=== PATIENT | female | born 1930 | race Caucasian/White ===

== ENCOUNTER 2018-02-10 14:52 | Inpatient (IN) ==
[2018-02-10] MEDS ORDERED: Ipratropium/Albuterol Neb 3 ML IH ONE (15:14)
[2018-02-10 15:30] LABS: Basophils # 0.1 K/mcL (0.0-0.2); Basophils % 0.8 %; Eosinophils # 0.7 K/mcL (0.0-0.6); Eosinophils % 9.3 %; Hematocrit 45.9 % (35.3-44.9); Hemoglobin 16.1 g/dL (11.5-15.4); Immature Granulocytes % 0.3 % (0-4); Lymphocytes # 2.4 K/mcL (0.6-4.6); Lymphocytes % 32.7 %; Mean Corpuscular HGB Conc 35.1 g/dL (31.6-35.5); Mean Corpuscular Hemoglobin 31.6 pg (28.0-33.3); Mean Platelet Volume 10.8 fL (9.4-12.4); Monocytes # 0.7 K/mcL (0.0-1.3); Neutrophils # 3.4 K/mcL (1.6-8.9); Platelet Count 158 K/mcL (140-400); Red Cell Distribution Width 12.8 % (11.5-14.5); Segmented Neutrophils % 46.9 %
--- NOTE | 2018-02-10 15:42 | Emergency Department Note ---
Disposition Clinical Impression: Acute exacerbation of chronic obstructive airways disease Disposition: Admitted As Inpatient Condition: Fair Referrals: Marah Charlton MD [Primary Care Provider] - Forms: ED Satisfaction Letter Time of Disposition: 17:30 [facility] - General Chief Complaint: ED Shortness of Breath/Dyspnea Stated Complaint: SEMAJ Time Seen by Provider: 02/10/18 14:59 Source: patient Limitations: no limitations Nursing Notes Reviewed: Yes Vital Signs Reviewed: Yes - History of Present Illness 88-year-old female presents from home with daughter bedside for evaluation of progressive dyspnea. Onset approximately 3 days ago. Described as dyspnea with exertion. Patient does have COPD secondary to secondhand smoking and uses 2 L oxygen at night as well as when necessary during the day. She has had a wet but nonproductive cough. This is improved with her inhaler use. ROS: Positive: As above Negative: Fever, chills, nausea, vomiting, chest pains, lightheadedness, unusual back pains - Related Data Home Medications Medication Instructions Recorded Confirmed Aspirin [Lo-Dose Aspirin EC] 81 mg PO DAILY 02/10/18 02/10/18 Citalopram Hydrobromide [Celexa] 20 mg PO DAILY 02/10/18 02/10/18 Clopidogrel [Plavix] 75 mg PO DAILY 02/10/18 02/10/18 Enalapril Maleate [Vasotec] 20 mg PO BID 02/10/18 02/10/18 Isosorbide MONOnitrate (24 HR) 60 mg PO DAILY 02/10/18 02/10/18 [Imdur] Lansoprazole [Prevacid] 30 mg PO BID 02/10/18 02/10/18 Metoprolol [Lopressor] 25 mg PO BID 02/10/18 02/10/18 Ranitidine HCl [Acid Emergency Communications Operator] 150 mg PO BID 02/10/18 02/10/18 hydroCHLOROthiazide 25 mg PO DAILY 02/10/18 02/10/18 [Hydrochlorothiazide] Allergies Allergy/AdvReac Type Severity Reaction Status Date / Time No Known Allergies Allergy Verified 09/06/17 14:53 All systems ED: reviewed and negative except as stated. Review of Systems: As Per HPI Past Medical History - Past Medical History Medical history: Reports: arthritis, asthma, CHF, COPD, hypertension, kidney stones, myocardial infarction, thyroid disease Surgical history: Reports: appendectomy, colostomy, herniorrhaphy, hysterectomy Psychiatric history: Reports: anxiety - Social History Smoking Status: Never smoker Smokeless Tobacco Status: No Alcohol use: Reports: rarely Drug use: Reports: none Physical Exam Vital Signs Reviewed General: Patient is alert, oriented, and in no acute distress. Head: atraumatic, normocephalic Eye: normal appearance, no scleral icterus, no conjunctival injection ENT: mucous membranes moist, normal external ear exam Neck: normal inspection, trachea midline, full ROM Chest: normal inspection, symmetric chest rise Respiratory: Good respiratory effort. Prolonged expiratory phase. Bilateral breath sounds are diminished with scattered wheeze and coarse bibasilar crackles. Cardiovascular: Regular rate and rhythm. No clicks, rubs, gallops, or murmors. Normal heart sounds. Abdomen: Bowel sounds present normoactive. Abdomen is soft, nondistended, and nontender. No guarding or rebound. Musculoskeletal: Spontaneously moving all extremities. Skin: warm, dry, intact. Neuro: Alert and oriented x4. Sensation light touch intact. Psych: Patient's affect is appropriate for situation. - General Limitations: no limitations General appearance: alert Course Course Narrative: Clinical concern is for pneumonia versus CHF. Patient appears comfortable with no increased work of breathing. Chest x-ray did not show pulmonary edema ammonia. BNP is below 100. We will manage patient has acute exacerbation of COPD; will begin Levaquin and solumedrol. I discussed the above the patient. She is agreeable to admission for continued evaluation and management. Next I discussed the above the [facility], Dr. Chandra, who agrees to accept patient for acute exacerbation of COPD for continued evaluation and management. EKG dated February 2018 at 14:58 interpreted as sinus rhythm with rate of 75. OR 179, QRS 137, QTC 442. Left axis. Right bundle branch block. Nonspecific ST- T changes. Polymorphic P waves consistent with pulmonary disease. Compared to previous dated 01/09/2015 showing no acute ischemic changes comparison. Chest X-Ray 02/10/18 15:14 IMPRESSION: Mild right basilar airspace opacity, likely atelectasis. D/ / Radha Sandhu MD / Radha Sandhu MD Interpreting Provider: Radha Sandhu MD Vital Signs Temperature 98.1 F 02/10/18 14:56 Pulse Rate 73 02/10/18 14:56 Respiratory Rate 16 02/10/18 14:56 Blood Pressure 153/69 02/10/18 14:56 O2 Sat by Pulse Oximetry 94 02/10/18 14:56 Temperature 98.1 F 02/10/18 15:25 Pulse Rate 73 02/10/18 15:25 Respiratory Rate 17 02/10/18 15:28 Blood Pressure 117/55 02/10/18 15:28 O2 Sat by Pulse Oximetry 94 02/10/18 15:28 Oxygen Delivery Oxygen Delivery Room Air Shortness of Breath/Dyspnea - Lab Data Result diagrams: 02/10/18 15:14 02/10/18 15:14 Lab Results 02/10/18 02/10/18 02/10/18 Range/Units 15:14 15:14 15:14 WBC 7.2 (4.3-11.1) K/mcL RBC 5.10 H (3.82-4.97) M/mcL Hgb 16.1 H (11.5-15.4) g/dL Hct 45.9 H (35.3-44.9) % MCV 90.0 (83.0-100.0) fL MCH 31.6 (28.0-33.3) pg MCHC 35.1 (31.6-35.5) g/dL RDW 12.8 (11.5-14.5) % Plt Count 158 (140-400) K/mcL MPV 10.8 (9.4-12.4) fL Immature Gran % 0.3 (0-4) % Seg Neutrophils % 46.9 % Lymphocytes % 32.7 % Monocytes % 10.0 % Eosinophils % 9.3 % Basophils % 0.8 % Neutrophils # 3.4 (1.6-8.9) K/mcL Lymphocytes # 2.4 (0.6-4.6) K/mcL Monocytes # 0.7 (0.0-1.3) K/mcL Eosinophils # 0.7 H (0.0-0.6) K/mcL Basophils # 0.1 (0.0-0.2) K/mcL Sodium 134 L (136-145) mEq/L Potassium 3.8 (3.5-5.1) mEq/L Chloride 97 L (98-107) mEq/L Carbon Dioxide 30 H (23-29) mEq/L BUN 18 (8-23) mg/dL Creatinine 0.85 (0.60-1.20) mg/dL Est GFR ( Amer) > 60 (> 60) Est GFR (Non-Af Amer) > 60 (> 60) BUN/Creatinine Ratio 21 (6-26) Glucose 102 (70-105) mg/dL Calculated Osmolality 280 (280-300) Lactic Acid (0.5-2.2) mmol/L Calcium 9.7 (8.6-10.3) mg/dL Troponin I < 0.03 (< 0.04) ng/mL B-Natriuretic Peptide 69 (Less than 100) pg/mL 02/10/18 Range/Units 16:28 WBC (4.3-11.1) K/mcL RBC (3.82-4.97) M/mcL Hgb (11.5-15.4) g/dL Hct (35.3-44.9) % MCV (83.0-100.0) fL MCH (28.0-33.3) pg MCHC (31.6-35.5) g/dL RDW (11.5-14.5) % Plt Count (140-400) K/mcL MPV (9.4-12.4) fL Immature Gran % (0-4) % Seg Neutrophils % % Lymphocytes % % Monocytes % % Eosinophils % % Basophils % % Neutrophils # (1.6-8.9) K/mcL Lymphocytes # (0.6-4.6) K/mcL Monocytes # (0.0-1.3) K/mcL Eosinophils # (0.0-0.6) K/mcL Basophils # (0.0-0.2) K/mcL Sodium (136-145) mEq/L Potassium (3.5-5.1) mEq/L Chloride (98-107) mEq/L Carbon Dioxide (23-29) mEq/L BUN (8-23) mg/dL Creatinine (0.60-1.20) mg/dL Est GFR ( Amer) (> 60) Est GFR (Non-Af Amer) (> 60) BUN/Creatinine Ratio (6-26) Glucose (70-105) mg/dL Calculated Osmolality (280-300) Lactic Acid 1.1 (0.5-2.2) mmol/L Calcium (8.6-10.3) mg/dL Troponin I (< 0.04) ng/mL B-Natriuretic Peptide (Less than 100) pg/mL
[2018-02-10 15:54] LABS: BUN/Creatinine Ratio 21 (6-26); Blood Urea Nitrogen 18 mg/dL (8-23); Calcium 9.7 mg/dL (8.6-10.3); Carbon Dioxide 30 mEq/L (23-29); Chloride 97 mEq/L (98-107); Glucose 102 mg/dL (70-105); Osmolality,Calculated 280 (280-300); Potassium 3.8 mEq/L (3.5-5.1); Sodium 134 mEq/L (136-145); Troponin I < 0.03 ng/mL (< 0.04); eGFR For African Americans > 60 (> 60); eGFR For Non-African Americans > 60 (> 60)
[2018-02-10] MEDS ORDERED: methylPREDNISolone 125 MG/2 ML VIAL IVP ONE (16:20)
[2018-02-10] MEDS ORDERED: Levofloxacin 750 MG/150 ML 750 MG/150 ML BAG IVPB ONE (16:20)
--- NOTE | 2018-02-10 17:23 | Emergency Department Note ---
Disposition Clinical Impression: Acute exacerbation of chronic obstructive airways disease Disposition: Admitted As Inpatient Referrals: Marah Charlton MD [Primary Care Provider] - Forms: ED Satisfaction Letter General Adult HPI - General Chief complaint: ED Shortness of Breath/Dyspnea Stated complaint: SEMAJ Time Seen by Provider: 02/10/18 14:59 Source: patient Limitations: no limitations - History of Present Illness Pain Scale: 6 - Related Data Home Medications Medication Instructions Recorded Confirmed Aspirin [Lo-Dose Aspirin EC] 81 mg PO DAILY 02/10/18 02/10/18 Citalopram Hydrobromide [Celexa] 20 mg PO DAILY 02/10/18 02/10/18 Clopidogrel [Plavix] 75 mg PO DAILY 02/10/18 02/10/18 Enalapril Maleate [Vasotec] 20 mg PO BID 02/10/18 02/10/18 Isosorbide MONOnitrate (24 HR) 60 mg PO DAILY 02/10/18 02/10/18 [Imdur] Lansoprazole [Prevacid] 30 mg PO BID 02/10/18 02/10/18 Metoprolol [Lopressor] 25 mg PO BID 02/10/18 02/10/18 Ranitidine HCl [Acid Vice President Education] 150 mg PO BID 02/10/18 02/10/18 hydroCHLOROthiazide 25 mg PO DAILY 02/10/18 02/10/18 [Hydrochlorothiazide] Allergies Allergy/AdvReac Type Severity Reaction Status Date / Time No Known Allergies Allergy Verified 09/06/17 14:53 Past Medical History - Past Medical History Medical history: Reports: arthritis, asthma, CHF, COPD, hypertension, kidney stones, myocardial infarction, thyroid disease Surgical history: Reports: appendectomy, colostomy, herniorrhaphy, hysterectomy Psychiatric history: Reports: anxiety - Social History Smoking Status: Never smoker Smokeless Tobacco Status: No Alcohol use: Reports: rarely Drug use: Reports: none Physical Exam - General Limitations: no limitations General appearance: alert Course Vital Signs Temperature 98.1 F 02/10/18 14:56 Pulse Rate 73 02/10/18 14:56 Respiratory Rate 16 02/10/18 14:56 Blood Pressure 153/69 02/10/18 14:56 O2 Sat by Pulse Oximetry 94 02/10/18 14:56 Temperature 98.1 F 02/10/18 15:25 Pulse Rate 73 02/10/18 15:25 Respiratory Rate 17 02/10/18 15:28 Blood Pressure 117/55 02/10/18 15:28 O2 Sat by Pulse Oximetry 94 02/10/18 15:28 Oxygen Delivery Oxygen Delivery Room Air Medical Decision Making - Lab Data Result diagrams: 02/10/18 15:14 02/10/18 15:14 Lab Results 02/10/18 02/10/18 02/10/18 Range/Units 15:14 15:14 15:14 WBC 7.2 (4.3-11.1) K/mcL RBC 5.10 H (3.82-4.97) M/mcL Hgb 16.1 H (11.5-15.4) g/dL Hct 45.9 H (35.3-44.9) % MCV 90.0 (83.0-100.0) fL MCH 31.6 (28.0-33.3) pg MCHC 35.1 (31.6-35.5) g/dL RDW 12.8 (11.5-14.5) % Plt Count 158 (140-400) K/mcL MPV 10.8 (9.4-12.4) fL Immature Gran % 0.3 (0-4) % Seg Neutrophils % 46.9 % Lymphocytes % 32.7 % Monocytes % 10.0 % Eosinophils % 9.3 % Basophils % 0.8 % Neutrophils # 3.4 (1.6-8.9) K/mcL Lymphocytes # 2.4 (0.6-4.6) K/mcL Monocytes # 0.7 (0.0-1.3) K/mcL Eosinophils # 0.7 H (0.0-0.6) K/mcL Basophils # 0.1 (0.0-0.2) K/mcL Sodium 134 L (136-145) mEq/L Potassium 3.8 (3.5-5.1) mEq/L Chloride 97 L (98-107) mEq/L Carbon Dioxide 30 H (23-29) mEq/L BUN 18 (8-23) mg/dL Creatinine 0.85 (0.60-1.20) mg/dL Est GFR ( Amer) > 60 (> 60) Est GFR (Non-Af Amer) > 60 (> 60) BUN/Creatinine Ratio 21 (6-26) Glucose 102 (70-105) mg/dL Calculated Osmolality 280 (280-300) Lactic Acid (0.5-2.2) mmol/L Calcium 9.7 (8.6-10.3) mg/dL Troponin I < 0.03 (< 0.04) ng/mL B-Natriuretic Peptide 69 (Less than 100) pg/mL 02/10/18 Range/Units 16:28 WBC (4.3-11.1) K/mcL RBC (3.82-4.97) M/mcL Hgb (11.5-15.4) g/dL Hct (35.3-44.9) % MCV (83.0-100.0) fL MCH (28.0-33.3) pg MCHC (31.6-35.5) g/dL RDW (11.5-14.5) % Plt Count (140-400) K/mcL MPV (9.4-12.4) fL Immature Gran % (0-4) % Seg Neutrophils % % Lymphocytes % % Monocytes % % Eosinophils % % Basophils % % Neutrophils # (1.6-8.9) K/mcL Lymphocytes # (0.6-4.6) K/mcL Monocytes # (0.0-1.3) K/mcL Eosinophils # (0.0-0.6) K/mcL Basophils # (0.0-0.2) K/mcL Sodium (136-145) mEq/L Potassium (3.5-5.1) mEq/L Chloride (98-107) mEq/L Carbon Dioxide (23-29) mEq/L BUN (8-23) mg/dL Creatinine (0.60-1.20) mg/dL Est GFR ( Amer) (> 60) Est GFR (Non-Af Amer) (> 60) BUN/Creatinine Ratio (6-26) Glucose (70-105) mg/dL Calculated Osmolality (280-300) Lactic Acid 1.1 (0.5-2.2) mmol/L Calcium (8.6-10.3) mg/dL Troponin I (< 0.04) ng/mL B-Natriuretic Peptide (Less than 100) pg/mL Attestation Statement - Attestation Attestation: I examined this patient and my medical decision-making was reviewed with the Resident Physician. I agree with the documented findings, disposition and treatment plan as described except to the extent set forth below. 88 year old female presntse to the ED with complanits of SEMAJ and states that she is concerned that she may have pneuonia and has been icnresing her need for oxygen at home. Ronak does not appear to be in distress or volume overloaded although there are crackles present in her lungs and she likely is having a ACOPDE wiht bronchitis. WE will admit ot medicine for ACOPDE and bronchitis therapy for continued pulmonary toilet
--- NOTE | 2018-02-10 19:50 | Internal Med History&Physical ---
Date of Encounter: 02/10/18 Time of Encounter: 19:50 Internal Medicine - H&P: HPI Chief complaint: sob History of present illness: Ms. Acuna is a 88 year old female presents from home with daughter bedside for evaluation of progressive dyspnea. Onset approximately 3 days ago. Described as dyspnea with exertion. Patient does have COPD secondary to secondhand smoking and uses 2 L oxygen at night as well as when necessary during the day. She has had a wet but nonproductive cough. This is improved with her inhaler use. Chest x-ray did not show pulmonary edema ammonia. BNP is below 100. He was admitted for acute exacerbation of COPD and was started on Levaquin and solumedrol. Past Med Surg Social Fam HX - Past Medical History Medical history: arthritis, asthma, CHF, COPD, hypertension, kidney stones, myocardial infarction, thyroid disease Additional medical history: CARDIAC STENTS Psychiatric history: anxiety - Past Surgical History Surgical History: appendectomy, colostomy, herniorrhaphy, hysterectomy Additional surgical history: 2015 HERNIA REPAIR WITH A TWISTED BOWEL, - Social History Smoking Status: Never smoker Smokeless Tobacco Status: No Alcohol use: rarely Drug use: none Internal Medicine - H&P: Meds Aspirin [Lo-Dose Aspirin EC] 81 mg PO DAILY 02/10/18 [History] Citalopram Hydrobromide [Celexa] 20 mg PO DAILY 02/10/18 [History] Clopidogrel [Plavix] 75 mg PO DAILY 02/10/18 [History] Enalapril Maleate [Vasotec] 20 mg PO BID 02/10/18 [History] Isosorbide MONOnitrate (24 HR) [Imdur] 60 mg PO DAILY 02/10/18 [History] Lansoprazole [Prevacid] 30 mg PO BID 02/10/18 [History] Metoprolol [Lopressor] 25 mg PO BID 02/10/18 [History] Ranitidine HCl [Acid Rice Drier Operator] 150 mg PO BID 02/10/18 [History] hydroCHLOROthiazide [Hydrochlorothiazide] 25 mg PO DAILY 02/10/18 [History] 3 Allergy/AdvReac Type Severity Reaction Status Date / Time No Known Allergies Allergy Verified 09/06/17 14:53 All Systems PM: A 10-system review of systems was performed and is negative for pertinent findings except as documented above in the HPI. - Constitutional Constitutional: no chills, no fever(s), no night sweats - Cardiovascular Cardiovascular ROS IM: dyspnea, no chest pain, no diaphoresis, no lightheadedness, no palpitations, no syncope - Respiratory Respiratory: cough, dyspnea, wheezing, excessive phlegm production - Gastrointestinal Gastrointestinal: no abdominal pain, no diarrhea, no hematemesis, no hematochezia, no melena, no nausea, no vomiting - Neurological Neurological ROS: no confusion, no convulsions, no focal weakness, no numbness, no tingling, no tremor(s) - Constitutional Vitals: Temp Pulse Resp BP Pulse Ox 97.9 F 82 16 151/69 93 02/10/18 18:40 02/10/18 18:40 02/10/18 18:40 02/10/18 18:40 02/10/18 18:40 General appearance: Present: A&O X 3 - Head Head exam: Present: atraumatic, normocephalic - Neck Neck exam general surgery: Present: supple, trachea midline. Absent: lymphadenopathy - Respiratory Respiratory exam: Present: rhonchi, wheezes. Absent: accessory muscle use, rales - Cardiovascular Cardiovascular exam: Present: RRR, +S1, +S2. Absent: diastolic murmur, gallop, rubs, systolic murmur - GI/Abdominal GI/Abdominal exam: Present: normal bowel sounds, soft, no peritoneal signs. Absent: distended, tenderness - Extremities Exam Extremities exam: Present: warm, radial pulses palpable and symmetrical. Absent : calf tenderness, cyanotic, pedal edema Internal Med - H&P Results - Labs CBC & Chem 7: 02/10/18 15:14 02/10/18 15:14 - Assessment and plan (1) Acute exacerbation of chronic obstructive airways disease Current Visit: Yes Status: Acute Assessment and plan: ASSESSMENT: - SOB due to copd exacerbation caused by URTI, allergen exposure, medication nonocompliance PLAN: - Aerosols q 4 hr and PRN SOB - Solu-medrol 40 mg IV q 6 hr - O2 to keep SpO2 higher than 92% (SpO higher than 95% if CAD) - CBCD, BMP in AM - Sputum Gram stain, C+S - Tylenol 650 mg PO q 4-6 hr PRN pain/fever - Heparin 5000 U SQ BID - Home meds - check the list and restart - Azithromycine 500 po daily (2) Hypertension Current Visit: Yes Status: Acute (3) Myocardial infarction Current Visit: Yes Status: Chronic (4) DVT prophylaxis Current Visit: Yes Status: Acute - Time Spent With Patient Total time spent is greater than 50% in coordination of care (as documented) at patient's floor/unit and/or counseling patient:
[2018-02-10] MEDS ORDERED: Ondansetron 4 MG/2 ML VIAL IVP PRN (20:07)
[2018-02-10] MEDS ORDERED: Naloxone 0.4 MG/ML INJ IVP PRN (20:07)
[2018-02-10] MEDS ORDERED: *HR* OxyCODONE Immed Rel 5 MG TABLET PO PRN (20:07)
[2018-02-10] MEDS ORDERED: *HR* HYDROcodone/Acet 5/325 mg TABLET PO PRN (20:07)
[2018-02-10] MEDS ORDERED: Acetaminophen 325 MG TABLET PO PRN (20:07)
[2018-02-10] MEDS: Lisinopril 20 MG TABLET PO SCH (21:30)
[2018-02-10] MEDS: Ipratropium/Albuterol Neb 3 ML IH SCH (22:23)
[2018-02-10] MEDS: MethylPREDNISolone 40 MG/ML VIAL IVP SCH (23:12)
[2018-02-11 03:21] LABS: Bilirubin,Urine Negative (Negative); Blood,Urine Negative (Negative); Clarity,Urine Cloudy (Clear); Color,Urine Yellow (Yellow); Glucose,Urine (UA) 500 mg/dL (Normal); Ketones,Urine Negative (Negative); Leukocyte Esterase,Urine Trace (Negative); Nitrite,Urine Negative (Negative); PH,Urine 5.5 pH Units (5.0-8.0); Protein,Urine Negative (Neg-Trace); Specific Gravity,Urine 1.023 (1.010-1.025); Urobilinogen,Urine Normal (Normal)
[2018-02-11 03:23] LABS: Bacteria,Urine None Seen per hpf (None-Few); Hyaline Casts,Urine None Seen per lpf (None-Few); Squamous Epithelial Cell,Urine Many per lpf (None-Few)
[2018-02-11] MEDS: Ipratropium/Albuterol Neb 3 ML IH SCH ×4 (04:36→22:22)
[2018-02-11] MEDS: MethylPREDNISolone 40 MG/ML VIAL IVP SCH ×3 (05:31→16:53)
[2018-02-11 06:16] LABS: Hematocrit 43.9 % (35.3-44.9); Hemoglobin 15.5 g/dL (11.5-15.4); Mean Corpuscular HGB Conc 35.3 g/dL (31.6-35.5); Mean Corpuscular Hemoglobin 31.3 pg (28.0-33.3); Mean Corpuscular Volume 88.5 fL (83.0-100.0); Mean Platelet Volume 10.8 fL (9.4-12.4); Platelet Count 144 K/mcL (140-400); Red Blood Count 4.96 M/mcL (3.82-4.97); Red Cell Distribution Width 12.5 % (11.5-14.5)
[2018-02-11 06:24] LABS: INR 1.1; Prothrombin Time 12.1 Seconds (9.4-12.1)
[2018-02-11 06:27] LABS: Activated Partial Thrombo Time 30.2 Seconds (26.0-36.0)
[2018-02-11 06:41] LABS: Alanine Aminotransferase 109 Units/L (7-52); Albumin/Globulin Ratio 1.7 (1.1-2.2); Alkaline Phosphatase 92 Units/L (34-104); Aspartate Amino Transferase 152 Units/L (13-39); BUN/Creatinine Ratio 33 (6-26); Bilirubin,Total 0.6 mg/dL (0.3-1.0); Blood Urea Nitrogen 26 mg/dL (8-23); Calcium 9.1 mg/dL (8.6-10.3); Carbon Dioxide 26 mEq/L (23-29); Chloride 97 mEq/L (98-107); Chol/HDL Ratio 3.4 (0-4.9); Cholesterol 186 mg/dL (< 200); Globulin 2.4 g/dL (2.4-3.5); Glucose 168 mg/dL (70-105); HDL Cholesterol 55 mg/dL (40-59); LDL Cholesterol,Calculated 123 mg/dL (0-99); Magnesium 1.5 mg/dL (1.6-2.6); Osmolality,Calculated 283 (280-300); Phosphorous 3.4 mg/dL (2.7-4.5); Potassium 3.9 mEq/L (3.5-5.1); Sodium 132 mEq/L (136-145); Total Protein 6.4 g/dL (6.4-8.9); Triglycerides 38 mg/dL (< 150); eGFR For African Americans > 60 (> 60); eGFR For Non-African Americans > 60 (> 60)
[2018-02-11] MEDS: Famotidine 20 MG TABLET PO SCH (08:27)
[2018-02-11] MEDS: Isosorbide MONOnitrate (24 HR) 60 MG TAB.ER.24H PO SCH (08:27)
[2018-02-11] MEDS: Aspirin Enteric Coated 81 MG Tablet PO SCH (08:28)
[2018-02-11] MEDS: Lisinopril 20 MG TABLET PO SCH ×2 (08:28→21:27)
[2018-02-11] MEDS: hydroCHLOROthiazide 25 MG TABLET PO SCH (08:28)
[2018-02-11] MEDS: Levofloxacin 250 MG/50 ML 250 MG/50 ML BAG IVPB SCH (14:40)
[2018-02-11] MEDS ORDERED: Levofloxacin 500 MG/100 ML 500 MG/100 ML BAG IVPB SCH (16:00)
[2018-02-11] MEDS ORDERED: Chloraseptic Spray 177 ML BOTTLE MM PRN (16:10)
--- NOTE | 2018-02-11 17:31 | Internal Med Progress Note ---
Date of Encounter: 02/11/18 Time of Encounter: 08:40 - Assessment and plan (1) Acute exacerbation of chronic obstructive airways disease Current Visit: Yes Status: Acute Assessment and plan: Mild acute exacerbation. Patient reports increased O2 demand, nonproductive cough. Onset of symptoms 5-6 days ago. Patient is in no distress and is resting easily. Continue telemetry Continue duo nebs, IV Levaquin, IV steroids, O2 as needed to maintain sats greater than 92%. (2) Hypertension Current Visit: Yes Status: Acute Assessment and plan: Well-controlled. Continue home medications. Qualifiers: Hypertension type: essential hypertension Qualified Code(s): I10 - Essential (primary) hypertension (3) DVT prophylaxis Current Visit: Yes Status: Acute Assessment and plan: Encourage ambulation, heparin subcutaneous. (4) History of VT (myocardial infarction) Current Visit: Yes Status: Chronic Assessment and plan: Remote history. Denies chest pain. Continue ASA, Plavix, BB, and Imdur Continue telemetry - Time Spent With Patient Total time spent is greater than 50% in coordination of care (as documented) at patient's floor/unit and/or counseling patient: less than 15 minutes - Subjective Interval history: Patient was seen and assessed at bedside at 8:40 AM. Patient with shortness of breath for the last 5-6 days. Patient denies productive cough, she does have rhonchi. Patient has been using albuterol inhaler at home that is . Family is requesting duo nebs at home, she already has the nebulizer machine. Patient reports that she has had increased O2 demand has been wearing oxygen while she is resting at home, normally wears at night. She denies headache, nausea, vomiting, diarrhea, chest pain, abdominal pain, nausea, vomiting, diarrhea. - Constitutional Vitals: Temp Pulse Resp BP Pulse Ox 98.3 F 73 18 126/83 96 02/11/18 15:50 02/11/18 15:50 02/11/18 16:17 02/11/18 15:50 02/11/18 16:17 General appearance: Present: cooperative, A&O X 3, pleasant, no acute distress, answers questions appropriately - Head Head exam: Present: atraumatic, normal inspection, normocephalic - Eye Eye exam: Present: normal appearance, conjuntiva pink, sclera anicteric - Neck Neck exam general surgery: Present: supple, trachea midline. Absent: lymphadenopathy, tenderness - Respiratory Respiratory exam: Present: CTAB, rhonchi. Absent: accessory muscle use, rales, respiratory distress, wheezes - Cardiovascular Cardiovascular exam: Present: RRR, +S1, +S2. Absent: bradycardia, diastolic murmur, gallop, rubs, systolic murmur, tachycardia - GI/Abdominal GI/Abdominal exam: Present: normal bowel sounds, soft. Absent: distended, hepatomegaly, tenderness - Extremities Exam Extremities exam: Present: normal capillary refill, normal inspection, warm, radial pulses palpable and symmetrical. Absent: calf tenderness, cyanotic, pedal edema, tenderness - Neurological Exam Neurological exam: Present: alert, oriented X3, no focal deficits. Absent: facial droop, speech deficit - Skin Skin exam: Present: dry, intact, normal color, warm. Absent: rash Internal Medicine: Result - Labs CBC & Chem 7: 02/11/18 05:53 02/11/18 05:53 Labs: Short CBC 02/11/18 Range/Units 05:53 WBC 5.9 (4.3-11.1) K/mcL Hgb 15.5 H (11.5-15.4) g/dL Hct 43.9 (35.3-44.9) % Plt Count 144 (140-400) K/mcL BMP 02/11/18 05:53 Sodium 132 L Potassium 3.9 Chloride 97 L Carbon Dioxide 26 BUN 26 H Creatinine 0.80 Glucose 168 H Calcium 9.1 Liver Function 02/11/18 Range/Units 05:53 Total Bilirubin 0.6 (0.3-1.0) mg/dL AST 152 H (13-39) Units/L ALT 109 H (7-52) Units/L Alkaline Phosphatase 92 (34-104) Units/L Albumin 4.0 (3.5-5.7) g/dL Urine 02/11/18 Range/Units 03:05 Urine Color Yellow (Yellow) Urine Clarity Cloudy A (Clear) Urine pH 5.5 (5.0-8.0) pH Units Ur Specific [place] 1.023 (1.010-1.025) Urine Protein Negative (Neg-Trace) mg/dL Urine Glucose (UA) 500 H (Normal) mg/dL - ABG Interpretation ABG results: PT/INR, D-dimer PT 12.1 Seconds (9.4-12.1) 02/11/18 05:53 Consult Discharge Plan - Plan Referrals: Marah Charlton MD [Primary Care Provider] -
[2018-02-11] MEDS: *HR* Heparin 5,000 UNIT/ML VIAL SQ SCH (17:45)
[2018-02-12] MEDS: Ipratropium/Albuterol Neb 3 ML IH SCH ×3 (04:08→16:32)
[2018-02-12] MEDS: *HR* Heparin 5,000 UNIT/ML VIAL SQ SCH (05:56)
[2018-02-12] MEDS ORDERED: MethylPREDNISolone 40 MG/ML VIAL IVP SCH (06:00)
[2018-02-12 06:56] LABS: Basophils % 0.1 %; Eosinophils % 0.1 %; Hematocrit 39.7 % (35.3-44.9); Immature Granulocytes % 0.8 % (0-4); Lymphocytes # 1.2 K/mcL (0.6-4.6); Lymphocytes % 8.4 %; Mean Corpuscular HGB Conc 35.3 g/dL (31.6-35.5); Mean Corpuscular Volume 87.8 fL (83.0-100.0); Mean Platelet Volume 11.6 fL (9.4-12.4); Monocytes # 0.7 K/mcL (0.0-1.3); Monocytes % 4.6 %; Neutrophils # 12.3 K/mcL (1.6-8.9); Platelet Count 163 K/mcL (140-400); Red Blood Count 4.52 M/mcL (3.82-4.97); Red Cell Distribution Width 12.6 % (11.5-14.5)
[2018-02-12 07:22] LABS: BUN/Creatinine Ratio 37 (6-26); Blood Urea Nitrogen 28 mg/dL (8-23); Calcium 9.1 mg/dL (8.6-10.3); Carbon Dioxide 28 mEq/L (23-29); Chloride 93 mEq/L (98-107); Glucose 139 mg/dL (70-105); Osmolality,Calculated 274 (280-300); Potassium 4.3 mEq/L (3.5-5.1); Sodium 128 mEq/L (136-145); eGFR For African Americans > 60 (> 60); eGFR For Non-African Americans > 60 (> 60)
[2018-02-12] MEDS: Isosorbide MONOnitrate (24 HR) 60 MG TAB.ER.24H PO SCH (09:10)
[2018-02-12] MEDS: Famotidine 20 MG TABLET PO SCH (09:10)
[2018-02-12] MEDS: hydroCHLOROthiazide 25 MG TABLET PO SCH (09:10)
[2018-02-12] MEDS: Aspirin Enteric Coated 81 MG Tablet PO SCH (09:10)
[2018-02-12] MEDS: Lisinopril 20 MG TABLET PO SCH (09:10)
[2018-02-12 15:14] VITALS: BP 94/50
[2018-02-12] MEDS: Levofloxacin 250 MG/50 ML 250 MG/50 ML BAG IVPB SCH (16:09)
--- NOTE | 2018-02-12 16:25 | Discharge Summary ---
- NOTES TO OUTPATIENT PROVIDER Notes to Outpatient Provider: Acute COPD Date of Encounter: 02/12/18 Time of Encounter: 16:21 - Discharge Diagnosis (1) Acute exacerbation of chronic obstructive airways disease Priority: Primary Status: Acute (2) Hypertension Priority: Secondary Status: Chronic Qualifiers: Hypertension type: essential hypertension Qualified Code(s): I10 - Essential (primary) hypertension (3) CAD (coronary artery disease) Priority: Secondary Status: Chronic Qualifiers: Coronary Disease-Associated Artery/Lesion type: lummi artery [place] vs. transplanted heart: lummi heart Associated angina: without angina Qualified Code(s): I25.10 - Atherosclerotic heart disease of lummi coronary artery without angina pectoris (4) Hypothyroidism Priority: Secondary Status: Chronic Qualifiers: Hypothyroidism type: unspecified Qualified Code(s): E03.9 - Hypothyroidism , unspecified Hospital course: Ms. Acuna is a 88 year old female with the above medical problems, who was admitted with worsening cough and shortness of breath. She was noted to be in acute exacerbation of COPD and started on IV steroids, bronchodilator nebulizers , supplemental O2 and empiric IV antibiotics. She responded well and is currently at baseline O2 requirements. Plan of care d/w family at bedside; patient cannot participate in PT due to back pain. She does have [facility] in place, requesting for visiting nurse, and this is being referred. She also is being provided with prescription from her O2/DME company with nebulizer and meds and rollator. She is otherwise medically stable for discharge. Discharge discussed with: patient, family, case management - Time Spent with Patient Total time spent providing and/or coordinating discharge services: Greater than 30 minutes (40 min) - Discharge Medications Prescriptions: Ipratropium/Albuterol Neb [Duoneb] 3 ml IH QIDR PRN #100 inhsol PRN Reason: Wheezing levoFLOXacin [Levaquin] 500 mg PO ONCE #5 tablet predniSONE [PredniSONE] 10 mg PO DAILY #31 tablet Home Medications: Aspirin [Lo-Dose Aspirin EC] 81 mg PO DAILY 02/10/18 [History] Citalopram Hydrobromide [Celexa] 20 mg PO DAILY 02/10/18 [History] Clopidogrel [Plavix] 75 mg PO DAILY 02/10/18 [History] Enalapril Maleate [Vasotec] 20 mg PO BID 02/10/18 [History] Isosorbide MONOnitrate (24 HR) [Imdur] 60 mg PO DAILY 02/10/18 [History] Lansoprazole [Prevacid] 30 mg PO BID 02/10/18 [History] Metoprolol [Lopressor] 25 mg PO BID 02/10/18 [History] Ranitidine HCl [Acid Film Splicer] 150 mg PO BID 02/10/18 [History] hydroCHLOROthiazide [Hydrochlorothiazide] 25 mg PO DAILY 02/10/18 [History] Ipratropium/Albuterol Neb [Duoneb] 3 ml IH QIDR PRN #100 inhsol 02/11/18 [Rx] levoFLOXacin [Levaquin] 500 mg PO ONCE #5 tablet 02/11/18 [Rx] predniSONE [PredniSONE] 10 mg PO DAILY #31 tablet 02/11/18 [Rx] Allergies/Adverse Reactions: 3 Allergy/AdvReac Type Severity Reaction Status Date / Time No Known Allergies Allergy Verified 09/06/17 14:53 Date of admission: 02/11/18 17:33 Primary care physician: Marah Charlton Discharging clinician: Tg Gonzalez Anticipated date of discharge: 02/12/18 - Constitutional Vitals: Temp Pulse Resp BP Pulse Ox 98.0 F 63 15 94/50 94 02/12/18 15:09 02/12/18 15:09 02/12/18 15:09 02/12/18 15:09 02/12/18 15:09 General appearance: Present: cooperative, A&O X 3, answers questions appropriately - Respiratory Respiratory exam: Present: CTAB, rhonchi (intermittent B/L). Absent: accessory muscle use, rales, wheezes - Patient Status Disposition: Home Health Service Condition: Fair Functional capacity at discharge: uses cane/walker Overall status at discharge: patient is progressing back to baseline - Discharge Instructions Instructions: Prednisone (By mouth), Levofloxacin (By mouth), COPD Exacerbation , Gas And Oil Checker (GEN) Follow Up With: Marah Charlton MD [Primary Care Provider] - 02/19/18 10:15 am Additional Instructions: Your new medications were called into [facility] will deliver your new nebulizer and breathing treatments tomorrow. Your walker will be delivered to your home. [facility] has been set up for you along [employer]. Follow-up appointments: If there is not an appointment listed below, please call your physician and schedule a follow-up appointment. If you have congestive heart failure and your symptoms return, make an appointment with your physician. Medication List: Carry an up to date list of medications you are taking at all time. We have given you an updated medication list including any new medications that you have been prescribed. Please provide that list to your primary provider Symptoms: If your condition changes or you experience any of the following symptoms, notify your physician immediately: Unusual or worsening pain, fever, persistent nausea and vomiting, bleeding, increase in swelling (especially in your legs), sudden weight gain, extreme dizziness, chest pain, increased drainage or redness from a wound or incision. Go to the emergency department if you experience a problem with breathing. Weights: If you have a history of swelling or shortness of breath, weigh yourself daily and notify your physician if you have a weight gain of two or more pounds in one day or 5 or more pounds in a week. If you experience any of the warning signs for stroke: Sudden numbness or weakness of the face, arm or leg; especially on one side of the body, sudden confusion, trouble speaking or understanding, sudden trouble seeing in one or both eyes, sudden trouble walking, dizziness, loss of balance or coordination, sudden sever headache with no cause; Call 911 or go to the emergency room. Stroke is a medical emergency. Some risk factors for stroke: Age, cigarette smoking, diabetes, excessive alcohol consumption, family history , high blood pressure, overweight, physical inactivity, prior stroke, heart attack, diagnosis of carotid artery stenosis or other artery disease. If you smoke, STOP: Smoking or tobacco use significantly increases your risk of heart and lung disease. Your chance of disease greatly increases if you continue to smoke. For more information, call the [employer] tobacco quit line for smoking cessation - QUIT-NOW ( ) - Diet and Activity Activity: wear oxygen at all times Diet: low fat, low cholesterol, low salt diet
--- NOTE | 2018-02-12 16:28 | Physician Discharge Referral ---
Home Health/Hosp Referral Info Transfer to: Home Health Attending Provider: Tg Gonzalez Provider in Charge Post Discharge: PCP - Diagnosis (1) Acute exacerbation of chronic obstructive airways disease Priority: Primary Status: Acute (2) Hypertension Priority: Secondary Status: Chronic (3) CAD (coronary artery disease) Priority: Secondary Status: Chronic (4) Hypothyroidism Priority: Secondary Status: Chronic - Respiratory Orders Oxygen / L per min (2L/min via [place] PRN) Smoking Cessation: Smoking cessation has been advised. For more information, call the [place] [employer] Quit Line at 5-875-TCHX-NOW. - Diet/Nutrition Diet/Nutrition Orders: Cardiac - Activity Activity Orders: Ambulate - Services Needed Following services are medically necessary services: Nursing, Home Health Aide - Transfer Medications Prescriptions: Ipratropium/Albuterol Neb [Duoneb] 3 ml IH QIDR PRN #100 inhsol PRN Reason: Wheezing levoFLOXacin [Levaquin] 500 mg PO ONCE #5 tablet predniSONE [PredniSONE] 10 mg PO DAILY #31 tablet Home Medications: Aspirin [Lo-Dose Aspirin EC] 81 mg PO DAILY 02/10/18 [History] Citalopram Hydrobromide [Celexa] 20 mg PO DAILY 02/10/18 [History] Clopidogrel [Plavix] 75 mg PO DAILY 02/10/18 [History] Enalapril Maleate [Vasotec] 20 mg PO BID 02/10/18 [History] Isosorbide MONOnitrate (24 HR) [Imdur] 60 mg PO DAILY 02/10/18 [History] Lansoprazole [Prevacid] 30 mg PO BID 02/10/18 [History] Metoprolol [Lopressor] 25 mg PO BID 02/10/18 [History] Ranitidine HCl [Acid Recreational Programs Director] 150 mg PO BID 02/10/18 [History] hydroCHLOROthiazide [Hydrochlorothiazide] 25 mg PO DAILY 02/10/18 [History] Ipratropium/Albuterol Neb [Duoneb] 3 ml IH QIDR PRN #100 inhsol 02/11/18 [Rx] levoFLOXacin [Levaquin] 500 mg PO ONCE #5 tablet 02/11/18 [Rx] predniSONE [PredniSONE] 10 mg PO DAILY #31 tablet 02/11/18 [Rx] Allergies/Adverse Reactions: 3 Allergy/AdvReac Type Severity Reaction Status Date / Time No Known Allergies Allergy Verified 09/06/17 14:53 Certification: Further, I certify that my clinical findings support that this patient is homebound (i.e. absences from home require considerable and taxing effort and are for medical reasons or temple services or infrequently or short duration when for other reasons) because: Homebound Reason: Patient requires assistance of a person or device to safely leave home, Leaving home requires considerable and taxing effort due to condition, Severity of cardiac or pulmonary status limits activity tolerance Attestation: My signature below is to certify that this patient is under my care and that I, or nurse practitioner, or a physician's design assistant working with me, has a face-to -face encounter with this patient.
--- NOTE | 2018-02-13 09:14 | Electrocardiograph Report ---
[place] [id number] Test Date: 2018-02-10 Pat Name: Emmy Acuna Department: [id number] Room: 3B13 Gender: F Gusset Stitcher: AM : 1930 Requested By: Ye Mills Order Number: [id number] Reading MD: Levon Aldana Measurements Intervals Mary Alice Rate: 75 P: 5 WY: 179 QRS: -26 QRSD: 137 T: 50 QT: 414 QTc: 442 Interpretive Statements SINUS RHYTHM RIGHT BUNDLE BRANCH BLOCK LEFT VENTRICULAR HYPERTROPHY Electronically Signed On 02-13-2018 9:13:01 EDT by Levon Aldana
== END 2018-02-12 18:04 | disposition home health service (06) | DRG 192 ==
LOC: EMEROO 14:52 → 3BNU 14:52 → SUATTDRO 02-11 17:33
PROVIDERS: ADMIT Internal Medicine Nephrology; ATTEND Internal Medicine

== ENCOUNTER 2018-11-20 16:14 | Observation (INO) ==
--- NOTE | 2018-11-20 17:32 | Emergency Department Note ---
Disposition Clinical Impression: Melena, Hematochezia Disposition: Still a Patient Referrals: Chriss Langford [Primary Care Provider] - Forms: ED Satisfaction Letter General Adult HPI - General Chief complaint: ED GI Bleed Stated complaint: tar stool Time Seen by Provider: 11/20/18 17:03 Source: patient Limitations: no limitations Nursing Notes Reviewed: Yes Vital Signs Reviewed: Yes - History of Present Illness HPI Narrative: Ms. Acuna is a 88F today with one-day duration of bright red bloody and black diarrhea. Reports this morning she felt weak, and subsequently had a large bowel movement. Patient reports "felt different than any other episode of diarrhea". She reports some mild epigastric abdominal pain. Denies any nausea, vomiting, or hematemesis. Postoperative bowel movement she requested her daughter looked a bowel movement. Daughter is at bedside and reports that the bowel movement was bright red bloody and black tarry in appearance. She continues to complain of generalized weakness and mild increased shortness of breath, but denies any dizziness or lightheadedness. Reports she is short of breath baseline with her history of COPD. Denies any increase in cough or sputum production. She does state she takes Plavix daily at home for coronary artery disease with stent ainsley cement remotely. She reports last EGD or colonoscopy was approximately 4 years ago. She denies any antacid, or Pepto-Bismol use. She does report taking Excedrin approximately 3 times a week for chronic back pain reports is unchanged from baseline. Pain Scale: 9 - Related Data Home Medications Medication Instructions Recorded Confirmed Aspirin [Lo-Dose Aspirin EC] 81 mg PO DAILY 02/10/18 02/10/18 Citalopram Hydrobromide [Celexa] 20 mg PO DAILY 02/10/18 02/10/18 Clopidogrel [Plavix] 75 mg PO DAILY 02/10/18 02/10/18 Enalapril Maleate [Vasotec] 20 mg PO BID 02/10/18 02/10/18 Isosorbide MONOnitrate (24 HR) 60 mg PO DAILY 02/10/18 02/10/18 [Imdur] Lansoprazole [Prevacid] 30 mg PO BID 02/10/18 02/10/18 Metoprolol [Lopressor] 25 mg PO BID 02/10/18 02/10/18 Ranitidine HCl [Acid Historic Preservationist] 150 mg PO BID 02/10/18 02/10/18 hydroCHLOROthiazide 25 mg PO DAILY 02/10/18 02/10/18 [Hydrochlorothiazide] Previous Rx's Medication Instructions Recorded Ipratropium/Albuterol Neb [Duoneb] 3 ml IH QIDR PRN #100 inhsol 02/11/18 levoFLOXacin [Levaquin] 500 mg PO ONCE #5 tablet 02/11/18 predniSONE [PredniSONE] 10 mg PO DAILY #31 tablet 02/11/18 Allergies Allergy/AdvReac Type Severity Reaction Status Date / Time No Known Allergies Allergy Verified 09/06/17 14:53 All systems ED: reviewed and negative except as stated. Review of Systems: As Per HPI Constitutional: Reports: weakness (as per HPI). Denies: fever, chills Respiratory: Reports: dyspnea. Denies: cough Gastrointestinal: Reports: abdominal pain (as per HPI ), diarrhea, melena, hematochezia. Denies: nausea, vomiting, constipation, hematemesis Genitourinary: Denies: dysuria, frequency, hematuria Musculoskeletal: Reports: back pain (chronic, unchanged from baseline). Denies: arthralgia, myalgia Neurological: Denies: headache, numbness, paresthesias Hematological/Lymphatic: Denies: easy bleeding, easy bruising Past Medical History - Past Medical History Attestation: Yes The following information was validated with the patient. Source: patient, old records reviewed, obtained from family, nursing notes reviewed Medical history: Reports: arthritis, asthma, CHF, COPD, hypertension, kidney stones, myocardial infarction, thyroid disease Surgical history: Reports: appendectomy, colostomy, herniorrhaphy, hysterectomy Psychiatric history: Reports: anxiety - Social History Smoking Status: Never smoker Smokeless Tobacco Status: No Alcohol use: Reports: none Drug use: Reports: none Physical Exam - General Limitations: no limitations General appearance: alert, in no apparent distress - Head Head exam: atraumatic, normocephalic, normal inspection - Eye Eye exam: Present: normal appearance, PERRL, EOMI. Absent: scleral icterus - Chest Chest inspection: Present: normal inspection, symmetric chest wall rise. Absent: tenderness - Respiratory Respiratory exam: Present: normal lung sounds bilaterally. Absent: respiratory distress, wheezes, accessory muscle use - Cardiovascular Cardiovascular exam: Present: regular rate, normal rhythm, normal heart sounds, +S1, +S2 - Abdominal Exam Abdominal exam: Present: soft. Absent: distention, guarding, rebound, rigidity Abdominal tenderness: Present: epigastrium, moderate - Rectal Exam Client Portfolio Manager present during exam: Yes Rectal exam: Present: black stool, bloody stool - Extremities Exam Extremities exam: Present: normal inspection, full ROM. Absent: tenderness, pedal edema, calf tenderness - Back Exam Back exam: Present: normal inspection, full ROM. Absent: tenderness, CVA tenderness (R), CVA tenderness (L) - Neurological Exam Neurological exam: Present: alert, oriented X3 - Skin Skin exam: Present: warm, dry, intact, normal color. Absent: cyanosis Course Course Narrative: Initial history and physical exam revealed concern for possible GI bleed vs mesenteric ischemia vs perforated ulcer. Initial evaluation included CBC, type and screen, BMP, lipase, lactic acid, PT/INR, and PTT. EKG, and CT abdo men/pelvis were also ordered. Pt was given 40mg IV Protonix with history of GERD and epigastric abdominal pain. CBC, BMP, and coags are grossly unremarkable. Hemoglobin stable at 13.1. Stool hemoccult positive by lab and as visualized on exam. Hepatic panel and lactic acid pending at this time. CT abdomen/pelvis pending at this time. Will sign out pt to Dr Jonah Puentes. Pt will likely require admission for melena and hematochezia. - Reevaluation(s) Reevaluation #1: Pt has no new complaints at this time. Discussed her current lab results. Hemoglobin stable. Normal WBC. Vital signs remain stable. Transport in room to take pt to CT. UA, hepatic panel, and lactic acid are still pending at this time. Time: 18:40 Vital Signs Temperature 98.3 F 11/20/18 16:36 Pulse Rate 91 11/20/18 16:36 Respiratory Rate 16 11/20/18 16:36 Blood Pressure 129/70 11/20/18 16:36 O2 Sat by Pulse Oximetry 96 11/20/18 16:36 Temperature 98.3 F 11/20/18 16:36 Pulse Rate 80 11/20/18 18:37 Respiratory Rate 16 11/20/18 18:37 Blood Pressure 132/60 11/20/18 18:37 O2 Sat by Pulse Oximetry 96 04/17/19 18:37 Oxygen Delivery Oxygen Delivery Room Air Medical Decision Making - Medical Records Medical records reviewed: Yes I reviewed the patient's medical records. - Lab Data Lab results reviewed: Yes I reviewed the patient's lab results. Result diagrams: 11/20/18 17:33 11/20/18 17:33 Lab Results 11/20/18 11/20/18 11/20/18 Range/Units 17:03 17:33 17:33 WBC 8.5 (4.3-11.1) K/mcL RBC 4.21 (3.82-4.97) M/mcL Hgb 13.1 (11.5-15.4) g/dL Hct 36.9 (35.3-44.9) % MCV 87.6 (83.0-100.0) fL MCH 31.1 (28.0-33.3) pg MCHC 35.5 (31.6-35.5) g/dL RDW 11.9 (11.5-14.5) % Plt Count 178 (140-400) K/mcL MPV 11.4 (9.4-12.4) fL Immature Gran % 0.4 (0-4) % Seg Neutrophils % 62.8 % Lymphocytes % 27.2 % Monocytes % 7.4 % Eosinophils % 1.5 % Basophils % 0.7 % Neutrophils # 5.3 (1.6-8.9) K/mcL Lymphocytes # 2.3 (0.6-4.6) K/mcL Monocytes # 0.6 (0.0-1.3) K/mcL Eosinophils # 0.1 (0.0-0.6) K/mcL Basophils # 0.1 (0.0-0.2) K/mcL PT 11.5 (9.4-12.1) Seconds INR 1.0 APTT 31.4 (26.0-36.0) Seconds Sodium 139 (136-145) mEq/L Potassium 3.6 (3.5-5.1) mEq/L Chloride 98 (98-107) mEq/L Carbon Dioxide 29 (23-29) mEq/L BUN 37 H (8-23) mg/dL Creatinine 0.88 (0.60-1.20) mg/dL Est GFR ( Amer) > 60 (> 60) Est GFR (Non-Af Amer) > 60 (> 60) BUN/Creatinine Ratio 42 H (6-26) Glucose 110 H (70-105) mg/dL Calculated Osmolality 297 (280-300) Calcium 9.6 (8.6-10.3) mg/dL Stool Occult Bld Scrn (Negative) Blood Type Antibody Screen 11/20/18 11/20/18 Range/Units 17:33 17:38 WBC (4.3-11.1) K/mcL RBC (3.82-4.97) M/mcL Hgb (11.5-15.4) g/dL Hct (35.3-44.9) % MCV (83.0-100.0) fL MCH (28.0-33.3) pg MCHC (31.6-35.5) g/dL RDW (11.5-14.5) % Plt Count (140-400) K/mcL MPV (9.4-12.4) fL Immature Gran % (0-4) % Seg Neutrophils % % Lymphocytes % % Monocytes % % Eosinophils % % Basophils % % Neutrophils # (1.6-8.9) K/mcL Lymphocytes # (0.6-4.6) K/mcL Monocytes # (0.0-1.3) K/mcL Eosinophils # (0.0-0.6) K/mcL Basophils # (0.0-0.2) K/mcL PT (9.4-12.1) Seconds INR APTT (26.0-36.0) Seconds Sodium (136-145) mEq/L Potassium (3.5-5.1) mEq/L Chloride (98-107) mEq/L Carbon Dioxide (23-29) mEq/L BUN (8-23) mg/dL Creatinine (0.60-1.20) mg/dL Est GFR ( Amer) (> 60) Est GFR (Non-Af Amer) (> 60) BUN/Creatinine Ratio (6-26) Glucose (70-105) mg/dL Calculated Osmolality (280-300) Calcium (8.6-10.3) mg/dL Stool Occult Bld Scrn Positive A (Negative) Blood Type A POSITIVE Antibody Screen NEGATIVE Attestation Statement - Attestation Attestation: I, Ruben Leach DO, examined this patient [id number] and my medical decision-making was reviewed with Ivan ALLAN-1, Resident Physician. I agree with the documented findings, disposition and treatment plan as described except to the extent set forth below. I personally supervised and was present for the martinez/critical portions of the procedures completed by the resident documented below. Please see my progress notes for details.
[2018-11-20] MEDS ORDERED: Isovue-370 500 ML BOTTLE IVP ONE (17:33)
[2018-11-20] MEDS ORDERED: Pantoprazole 40 MG VIAL IVP STA (18:07)
[2018-11-20 18:12] LABS: Basophils # 0.1 K/mcL (0.0-0.2); Basophils % 0.7 %; Eosinophils # 0.1 K/mcL (0.0-0.6); Eosinophils % 1.5 %; Hematocrit 36.9 % (35.3-44.9); Hemoglobin 13.1 g/dL (11.5-15.4); Immature Granulocytes % 0.4 % (0-4); Lymphocytes # 2.3 K/mcL (0.6-4.6); Lymphocytes % 27.2 %; Mean Corpuscular HGB Conc 35.5 g/dL (31.6-35.5); Mean Corpuscular Hemoglobin 31.1 pg (28.0-33.3); Mean Corpuscular Volume 87.6 fL (83.0-100.0); Mean Platelet Volume 11.4 fL (9.4-12.4); Monocytes # 0.6 K/mcL (0.0-1.3); Monocytes % 7.4 %; Neutrophils # 5.3 K/mcL (1.6-8.9); Platelet Count 178 K/mcL (140-400); Red Blood Count 4.21 M/mcL (3.82-4.97); Red Cell Distribution Width 11.9 % (11.5-14.5); Segmented Neutrophils % 62.8 %
[2018-11-20 18:33] LABS: Prothrombin Time 11.5 Seconds (9.4-12.1)
[2018-11-20 18:34] LABS: BUN/Creatinine Ratio 42 (6-26); Blood Urea Nitrogen 37 mg/dL (8-23); Calcium 9.6 mg/dL (8.6-10.3); Carbon Dioxide 29 mEq/L (23-29); Chloride 98 mEq/L (98-107); Glucose 110 mg/dL (70-105); Osmolality,Calculated 297 (280-300); Potassium 3.6 mEq/L (3.5-5.1); Sodium 139 mEq/L (136-145); eGFR For Non-African Americans > 60 (> 60)
[2018-11-20 18:35] LABS: Activated Partial Thrombo Time 31.4 Seconds (26.0-36.0)
--- NOTE | 2018-11-20 18:55 | Emergency Department Note ---
Disposition Clinical Impression: Hematochezia, Melena Disposition: Still a Patient Condition: Fair Referrals: Chriss Langford [Primary Care Provider] - Forms: ED Satisfaction Letter Time of Disposition: 19:00 General Adult HPI - General Chief complaint: ED GI Bleed Stated complaint: tar stool Time Seen by Provider: 11/20/18 17:03 Source: patient Limitations: no limitations - History of Present Illness Pain Scale: 9 - Related Data Home Medications Medication Instructions Recorded Confirmed Aspirin [Lo-Dose Aspirin EC] 81 mg PO DAILY 02/10/18 02/10/18 Citalopram Hydrobromide [Celexa] 20 mg PO DAILY 02/10/18 02/10/18 Clopidogrel [Plavix] 75 mg PO DAILY 02/10/18 02/10/18 Enalapril Maleate [Vasotec] 20 mg PO BID 02/10/18 02/10/18 Isosorbide MONOnitrate (24 HR) 60 mg PO DAILY 02/10/18 02/10/18 [Imdur] Lansoprazole [Prevacid] 30 mg PO BID 02/10/18 02/10/18 Metoprolol [Lopressor] 25 mg PO BID 02/10/18 02/10/18 Ranitidine HCl [Acid Asset Protection Greeter] 150 mg PO BID 02/10/18 02/10/18 hydroCHLOROthiazide 25 mg PO DAILY 02/10/18 02/10/18 [Hydrochlorothiazide] Previous Rx's Medication Instructions Recorded Ipratropium/Albuterol Neb [Duoneb] 3 ml IH QIDR PRN #100 inhsol 02/11/18 levoFLOXacin [Levaquin] 500 mg PO ONCE #5 tablet 02/11/18 predniSONE [PredniSONE] 10 mg PO DAILY #31 tablet 02/11/18 Allergies Allergy/AdvReac Type Severity Reaction Status Date / Time No Known Allergies Allergy Verified 09/06/17 14:53 Constitutional: Reports: weakness (as per HPI). Denies: fever, chills Respiratory: Reports: dyspnea. Denies: cough Gastrointestinal: Reports: abdominal pain (as per HPI ), diarrhea, melena, hematochezia. Denies: nausea, vomiting, constipation, hematemesis Genitourinary: Denies: dysuria, frequency, hematuria Musculoskeletal: Reports: back pain (chronic, unchanged from baseline). Denies: arthralgia, myalgia Neurological: Denies: headache, numbness, paresthesias Hematological/Lymphatic: Denies: easy bleeding, easy bruising Past Medical History - Past Medical History Medical history: Reports: arthritis, asthma, CHF, COPD, hypertension, kidney stones, myocardial infarction, thyroid disease Surgical history: Reports: appendectomy, colostomy, herniorrhaphy, hysterectomy Psychiatric history: Reports: anxiety - Social History Smoking Status: Never smoker Smokeless Tobacco Status: No Alcohol use: Reports: none Drug use: Reports: none Physical Exam - General Limitations: no limitations General appearance: alert, in no apparent distress Course Vital Signs Temperature 98.3 F 11/20/18 16:36 Pulse Rate 91 11/20/18 16:36 Respiratory Rate 16 11/20/18 16:36 Blood Pressure 129/70 11/20/18 16:36 O2 Sat by Pulse Oximetry 96 11/20/18 16:36 Temperature 98.3 F 11/20/18 16:36 Pulse Rate 91 11/20/18 16:36 Respiratory Rate 16 11/20/18 16:36 Blood Pressure 129/70 11/20/18 16:36 O2 Sat by Pulse Oximetry 96 11/20/18 16:36 Oxygen Delivery Oxygen Delivery Room Air Attestation Statement - Attestation Attestation: I, Ruben Leach DO, examined this patient [id number] and my medical decision-making was reviewed with Ivan ALLAN-1, Resident Physician. I agree with the documented findings, disposition and treatment plan as described except to the extent set forth below. I personally supervised and was present for the martinez/critical portions of the procedures completed by the resident documented below. Please see my progress notes for details. 88-year-old female presents emergency room for concern of dark colored stool possible GI bleed. Patient denies any nausea vomiting or blood in her urine. Denies any chest pain or shortness of breath. Has no headache or vision change. She is not on a blood thinners at this time except for Plavix. Denies any travel outside the country. Denies any trauma or injury. She does not have any history of hemorrhoids. Denies any recent surgeries or injuries. Vital signs are stable. Patient is resting comfortably in the bed. Head is atraumatic. Mucous membranes are moist. Conjunctiva is normal. No signs of pale conjunctiva this time. Lungs are clear heart is regular. Abdomen is soft. She has no guarding rigidity or peritoneal symptoms. Rectal examination completed by the resident physician is grossly positive for blood as well as marijuana colored stool. Patient denies any history of GI bleed. She does have mild epigastric discomfort but no traumatic related injuries at this time. Patient will have detailed workup completed with CBC chemistry type and screen. Occult stool testing will be added on. Urinalysis to be collected. CT imaging the abdomen along with a screening EKG will be resulted. Disposition been a full workup and treatment course. Expectations patient will require admission for sedation at or evaluation with endoscopy. Patient will have Protonix given at this point with her history of acid reflux. Patient is otherwise stable. See detailed documentation the physical exam, medical intervention, medical decision-making and disposition in the resident physician's note. No critical care by the patient's treatment course at this time. 1845 Patient is waiting for CT imaging of the abdomen to be completed and admission process to be established secondary to melena and hematochezia. Patient is otherwise clinically stable and the labs are unremarkable. Patient is in no apparent distress at this point. Detailed review the presentation symptoms were discussed with the attending physician Dr. alda ling will complete the treatment course and admission
--- NOTE | 2018-11-20 19:10 | Emergency Department Note ---
Disposition Clinical Impression: Melena, Hematochezia Disposition: Admitted As Inpatient Condition: Fair GI Bleed HPI - General Chief complaint: ED GI Bleed Stated complaint: tar stool Time Seen by Provider: 11/20/18 17:03 Source: patient Mode of arrival: ambulatory Limitations: no limitations Nursing Notes Reviewed: Yes Vital Signs Reviewed: Yes - History of Present Illness HPI Narrative: Patient received in sign out from Dr. Ivan Snow DO at the end of her shift. Please see documentation by Dr. SNOW for initial evaluation, workup, and treatment(s). - Related Data Home Medications Medication Instructions Recorded Confirmed RX: Citalopram Hydrobromide 20 mg PO QPM 02/10/18 11/20/18 [Celexa] RX: Clopidogrel [Plavix] 75 mg PO DAILY 02/10/18 11/20/18 RX: Enalapril Maleate [Vasotec] 20 mg PO BID 02/10/18 11/20/18 RX: Isosorbide MONOnitrate (24 HR) 60 mg PO DAILY 02/10/18 11/20/18 [Imdur] RX: Metoprolol [Lopressor] 25 mg PO BID 02/10/18 11/20/18 RX: Ranitidine HCl [Acid Presentation Specialist] 150 mg PO BID 02/10/18 11/20/18 RX: hydroCHLOROthiazide 25 mg PO DAILY 02/10/18 11/20/18 [Hydrochlorothiazide] Cholecalciferol (D-3) [Vitamin D] 1,000 unit PO DAILY 11/20/18 11/20/18 Cyanocobalamin (Vitamin B-12) 2,500 mcg SL DAILY 11/20/18 11/20/18 [Vitamin B-12] Pantoprazole Sodium [Protonix] 40 mg PO DAILY 11/20/18 11/20/18 Allergies Allergy/AdvReac Type Severity Reaction Status Date / Time No Known Allergies Allergy Verified 09/06/17 14:53 Constitutional: Reports: weakness (as per HPI). Denies: fever, chills Respiratory: Reports: dyspnea. Denies: cough Gastrointestinal: Reports: abdominal pain (as per HPI ), diarrhea, melena, hematochezia. Denies: nausea, vomiting, constipation, hematemesis Genitourinary: Denies: dysuria, frequency, hematuria Musculoskeletal: Reports: back pain (chronic, unchanged from baseline). Denies: arthralgia, myalgia Neurological: Denies: headache, numbness, paresthesias Hematological/Lymphatic: Denies: easy bleeding, easy bruising Past Medical History - Past Medical History Medical history: Reports: arthritis, asthma, CHF, COPD, hypertension, kidney stones, myocardial infarction, thyroid disease Surgical history: Reports: appendectomy, colostomy, herniorrhaphy, hysterectomy Psychiatric history: Reports: anxiety - Social History Smoking Status: Never smoker Smokeless Tobacco Status: No Alcohol use: Reports: none Drug use: Reports: none Physical Exam - General Limitations: no limitations General appearance: alert, in no apparent distress Course Course Narrative: Upon my assessment patient continues to have tenderness in her epigastric region to palpation, but is otherwise alert oriented appropriate conversation. She is in no acute distress. Vital signs are stable. Laboratory and imaging results show no significant emergent pathology Patient will be admitted to hospitalist medicine service for further evaluation of hematochezia and melena. Dr. Murray from surgery notified surgery consult placed and will be following. Vital Signs Temperature 98.3 F 11/20/18 16:36 Pulse Rate 91 11/20/18 16:36 Respiratory Rate 16 11/20/18 16:36 Blood Pressure 129/70 11/20/18 16:36 O2 Sat by Pulse Oximetry 96 11/20/18 16:36 Temperature 97.4 F L 11/21/18 01:19 Pulse Rate 69 11/21/18 01:19 Respiratory Rate 15 11/21/18 01:19 Blood Pressure 124/57 11/21/18 01:19 O2 Sat by Pulse Oximetry 96 11/21/18 01:19 Oxygen Delivery Oxygen Delivery Room Air GI Bleed - Lab Data Result diagrams: 11/20/18 22:48 11/20/18 17:33 Lab Results 11/20/18 11/20/18 11/20/18 Range/Units 17:03 17:33 17:33 WBC 8.5 (4.3-11.1) K/mcL RBC 4.21 (3.82-4.97) M/mcL Hgb 13.1 (11.5-15.4) g/dL Hct 36.9 (35.3-44.9) % MCV 87.6 (83.0-100.0) fL MCH 31.1 (28.0-33.3) pg MCHC 35.5 (31.6-35.5) g/dL RDW 11.9 (11.5-14.5) % Plt Count 178 (140-400) K/mcL MPV 11.4 (9.4-12.4) fL Immature Gran % 0.4 (0-4) % Seg Neutrophils % 62.8 % Lymphocytes % 27.2 % Monocytes % 7.4 % Eosinophils % 1.5 % Basophils % 0.7 % Neutrophils # 5.3 (1.6-8.9) K/mcL Lymphocytes # 2.3 (0.6-4.6) K/mcL Monocytes # 0.6 (0.0-1.3) K/mcL Eosinophils # 0.1 (0.0-0.6) K/mcL Basophils # 0.1 (0.0-0.2) K/mcL PT 11.5 (9.4-12.1) Seconds INR 1.0 APTT 31.4 (26.0-36.0) Seconds Sodium 139 (136-145) mEq/L Potassium 3.6 (3.5-5.1) mEq/L Chloride 98 (98-107) mEq/L Carbon Dioxide 29 (23-29) mEq/L BUN 37 H (8-23) mg/dL Creatinine 0.88 (0.60-1.20) mg/dL Est GFR ( Amer) > 60 (> 60) Est GFR (Non-Af Amer) > 60 (> 60) BUN/Creatinine Ratio 42 H (6-26) Glucose 110 H (70-105) mg/dL Calculated Osmolality 297 (280-300) Lactic Acid (0.5-2.2) mmol/L Calcium 9.6 (8.6-10.3) mg/dL Total Bilirubin 0.6 (0.3-1.0) mg/dL Direct Bilirubin 0.1 (0.0-0.2) mg/dL Indirect Bilirubin 0.5 (0.0-1.2) mg/dL AST 18 (13-39) Units/L ALT 13 (7-52) Units/L Alkaline Phosphatase 45 (34-104) Units/L Serum Total Protein 6.3 L (6.4-8.9) g/dL Albumin 4.0 (3.5-5.7) g/dL Globulin 2.3 L (2.4-3.5) g/dL Albumin/Globulin Ratio 1.7 (1.1-2.2) Stool Occult Bld Scrn (Negative) Blood Type Antibody Screen 11/20/18 11/20/18 11/20/18 Range/Units 17:33 17:38 19:20 WBC (4.3-11.1) K/mcL RBC (3.82-4.97) M/mcL Hgb (11.5-15.4) g/dL Hct (35.3-44.9) % MCV (83.0-100.0) fL MCH (28.0-33.3) pg MCHC (31.6-35.5) g/dL RDW (11.5-14.5) % Plt Count (140-400) K/mcL MPV (9.4-12.4) fL Immature Gran % (0-4) % Seg Neutrophils % % Lymphocytes % % Monocytes % % Eosinophils % % Basophils % % Neutrophils # (1.6-8.9) K/mcL Lymphocytes # (0.6-4.6) K/mcL Monocytes # (0.0-1.3) K/mcL Eosinophils # (0.0-0.6) K/mcL Basophils # (0.0-0.2) K/mcL PT (9.4-12.1) Seconds INR APTT (26.0-36.0) Seconds Sodium (136-145) mEq/L Potassium (3.5-5.1) mEq/L Chloride (98-107) mEq/L Carbon Dioxide (23-29) mEq/L BUN (8-23) mg/dL Creatinine (0.60-1.20) mg/dL Est GFR ( Amer) (> 60) Est GFR (Non-Af Amer) (> 60) BUN/Creatinine Ratio (6-26) Glucose (70-105) mg/dL Calculated Osmolality (280-300) Lactic Acid 0.8 (0.5-2.2) mmol/L Calcium (8.6-10.3) mg/dL Total Bilirubin (0.3-1.0) mg/dL Direct Bilirubin (0.0-0.2) mg/dL Indirect Bilirubin (0.0-1.2) mg/dL AST (13-39) Units/L ALT (7-52) Units/L Alkaline Phosphatase (34-104) Units/L Serum Total Protein (6.4-8.9) g/dL Albumin (3.5-5.7) g/dL Globulin (2.4-3.5) g/dL Albumin/Globulin Ratio (1.1-2.2) Stool Occult Bld Scrn Positive A (Negative) Blood Type A POSITIVE Antibody Screen NEGATIVE 11/20/18 Range/Units 22:48 WBC (4.3-11.1) K/mcL RBC (3.82-4.97) M/mcL Hgb 11.9 (11.5-15.4) g/dL Hct 34.5 L (35.3-44.9) % MCV (83.0-100.0) fL MCH (28.0-33.3) pg MCHC (31.6-35.5) g/dL RDW (11.5-14.5) % Plt Count (140-400) K/mcL MPV (9.4-12.4) fL Immature Gran % (0-4) % Seg Neutrophils % % Lymphocytes % % Monocytes % % Eosinophils % % Basophils % % Neutrophils # (1.6-8.9) K/mcL Lymphocytes # (0.6-4.6) K/mcL Monocytes # (0.0-1.3) K/mcL Eosinophils # (0.0-0.6) K/mcL Basophils # (0.0-0.2) K/mcL PT (9.4-12.1) Seconds INR APTT (26.0-36.0) Seconds Sodium (136-145) mEq/L Potassium (3.5-5.1) mEq/L Chloride (98-107) mEq/L Carbon Dioxide (23-29) mEq/L BUN (8-23) mg/dL Creatinine (0.60-1.20) mg/dL Est GFR ( Amer) (> 60) Est GFR (Non-Af Amer) (> 60) BUN/Creatinine Ratio (6-26) Glucose (70-105) mg/dL Calculated Osmolality (280-300) Lactic Acid (0.5-2.2) mmol/L Calcium (8.6-10.3) mg/dL Total Bilirubin (0.3-1.0) mg/dL Direct Bilirubin (0.0-0.2) mg/dL Indirect Bilirubin (0.0-1.2) mg/dL AST (13-39) Units/L ALT (7-52) Units/L Alkaline Phosphatase (34-104) Units/L Serum Total Protein (6.4-8.9) g/dL Albumin (3.5-5.7) g/dL Globulin (2.4-3.5) g/dL Albumin/Globulin Ratio (1.1-2.2) Stool Occult Bld Scrn (Negative) Blood Type Antibody Screen Attestation Statement - Attestation Attestation: I, Jonah Puentes, examined this patient and my medical decision-making was reviewed with the DIRECTOR MEDICAL SCIENCE/PA/Advanced Practice Nurse/Resident Physician. I agree with the documented findings, disposition and treatment plan as described except to the extent set forth below. 88-year-old female received in sign out at 7 PM pending imaging, reevaluation and disposition. Patient has hematochezia and melena. She has stable vital sig ns emergency department. CT showed inflammation of the gastric antrum and diffuse diverticulosis without evidence of diverticulitis or other acute surgical pathology. Patient will be admitted to the hospitalist. We spoke with the surgeon on-call, Dr. Samuel who will evaluate patient in the hospital.
[2018-11-20 19:22] LABS: Alanine Aminotransferase 13 Units/L (7-52); Albumin/Globulin Ratio 1.7 (1.1-2.2); Alkaline Phosphatase 45 Units/L (34-104); Aspartate Amino Transferase 18 Units/L (13-39); Bilirubin,Direct 0.1 mg/dL (0.0-0.2); Bilirubin,Indirect 0.5 mg/dL (0.0-1.2); Bilirubin,Total 0.6 mg/dL (0.3-1.0); Globulin 2.3 g/dL (2.4-3.5); Total Protein 6.3 g/dL (6.4-8.9)
[2018-11-20] MEDS ORDERED: Naloxone 0.4 MG/ML INJ IVP PRN (22:29)
[2018-11-20] MEDS ORDERED: Acetaminophen 325 MG TABLET PO PRN (22:29)
[2018-11-20] MEDS ORDERED: Ondansetron 4 MG/2 ML VIAL IVP PRN (22:29)
--- NOTE | 2018-11-20 22:46 | Internal Med History&Physical ---
Date of Encounter: 11/20/18 Time of Encounter: 20:55 Internal Medicine - H&P: HPI Chief complaint: GI bleed Admitted From: Emergency Dept Plans for Post Hospital Care: Home History of present illness: Ms. Acuna is a 88 year old female who presents with one day history of bloody stools, which started today. She was feeling well until earlier today when she had several bowel movements of initially dark, tarry stools followed by gross blood in the stool. This prompted patient and family to come to ER for evaluation. Work-up in ER revealed patient to have no sign of anemia, but she was having some abdominal pain and frequent bouts of GI bleed as reported by family. She underwent CT scan of the abdomen, which revealed negative findings other than evidence of gastritis. She did have evidence of diverticulosis, however. She was therefore admitted to the hospitalist service with acute care surgical consultation for possible need for endoscopy. Upon my assessment of the patient, patient and both daughters confirmed the above history. She has had several bouts of melena-type stools followed by grossly bloody stools today. She looks a little pale and feels weak and feeble. She has become lightheaded and dizzy since the onset of symptoms earlier today. She denies any fevers, chills, or night sweats. She does complain of some dysuria but no hematuria. She has a history of partial bowel resection in the past secondary to bowel obstruction and diverticulosis. She is on chronic aspirin and Plavix for coronary artery disease. She had remote history of PCI/stent, but that was many years ago. She denies any excessive NSAID use. She denies any alcohol use. She does drink a moderate to significant amount of coffee, however. She denies any other excessive caffeine use. Past Med Surg Social Fam HX - Past Medical History Attestation: Yes The following information was validated with the patient. Source: patient, old records reviewed, obtained from family Medical history: arthritis, asthma, CHF, COPD, hypertension, kidney stones, myocardial infarction, thyroid disease Additional medical history: CARDIAC STENTS Psychiatric history: anxiety - Past Surgical History Surgical History: appendectomy, colostomy, herniorrhaphy, hysterectomy Additional surgical history: 2015 HERNIA REPAIR WITH A TWISTED BOWEL, - Social History Smoking Status: Never smoker Smokeless Tobacco Status: No Alcohol use: none Drug use: none Current living situation: Home, With Family Activity Level: Independent ambulation Recent Out of Country Travel Within the Last 8 Weeks: No - Family History Mother Living Status: Hx Family GI Disorders: No Father Living Status: Hx Family GI Disorders: No Internal Medicine - H&P: Meds Citalopram Hydrobromide [Celexa] 20 mg PO QPM 02/10/18 [History] Clopidogrel [Plavix] 75 mg PO DAILY 02/10/18 [History] Enalapril Maleate [Vasotec] 20 mg PO BID 02/10/18 [History] Isosorbide MONOnitrate (24 HR) [Imdur] 60 mg PO DAILY 02/10/18 [History] Metoprolol [Lopressor] 25 mg PO BID 02/10/18 [History] Ranitidine HCl [Acid Searchlight Operator] 150 mg PO BID 02/10/18 [History] hydroCHLOROthiazide [Hydrochlorothiazide] 25 mg PO DAILY 02/10/18 [History] Cholecalciferol (D-3) [Vitamin D] 1,000 unit PO DAILY 11/20/18 [History] Cyanocobalamin (Vitamin B-12) [Vitamin B-12] 2,500 mcg SL DAILY 11/20/18 [History] Pantoprazole Sodium [Protonix] 40 mg PO DAILY 11/20/18 [History] Allergy/AdvReac Type Severity Reaction Status Date / Time No Known Allergies Allergy Verified 09/06/17 14:53 - Constitutional Constitutional: fatigue, weakness, no chills, no fever(s), no night sweats - EENT Eyes: no blurry vision, no change in vision Ears: no ear pain, no tinnitus Nose, mouth and throat: no nasal congestion, no sinus pressure, no sore throat - Cardiovascular Cardiovascular ROS IM: lightheadedness, no chest pain, no dyspnea, no dyspnea on exertion, no orthopnea, no syncope - Respiratory Respiratory: no cough, no dyspnea, no hemoptysis, no chest congestion, no change in phlegm color, no pain with cough - Gastrointestinal Gastrointestinal: abdominal pain, heartburn, hematochezia, melena, nausea, no diarrhea, no hematemesis, no vomiting - Genitourinary Genitourinary: dysuria, no flank pain, no hematuria - Musculoskeletal Musculoskeletal ROS IM: no arthralgias, no back pain - Integumentary Integumentary IM: no rash, no jaundice - Neurological Neurological ROS: dizziness, no focal weakness, no frequent falls, no headache(s) - Psychiatric Psychiatric: no anxiety, no depression - Endocrine Endocrine IM: no cold intolerance, no heat intolerance, no polydipsia, no polyuria - Allergic/Immunologic Allergic/Immunologic: wheezing, no GI upset with certain foods - Constitutional Vitals: Temp Pulse Resp BP Pulse Ox 98.3 F 80 16 132/60 96 11/20/18 16:36 11/20/18 18:37 11/20/18 18:37 11/20/18 18:37 11/20/18 18:37 General appearance: Present: cooperative, mild distress, A&O X 3, pleasant, answers questions appropriately Exam: pale complexion; weak; no acute distress - Head Head exam: Present: atraumatic, normal inspection - Eye Eye exam: Present: EOMI, PERRL. Absent: scleral icterus Pupils: Present: normal accommodation - ENT ENT exam: Present: mucous membranes dry, normal exam - Neck Neck exam general surgery: Present: full ROM, supple, trachea midline. Absent: lymphadenopathy, tenderness, nuchal rigidity, thyromegaly - Respiratory Respiratory exam: Present: prolonged expiratory phase, rhonchi, wheezes. Absent: chest wall tenderness, rales, respiratory distress, tachypnea - Cardiovascular Cardiovascular exam: Present: distant heart sounds, RRR, +S1, +S2, systolic murmur (grade 2-3). Absent: diastolic murmur - GI/Abdominal GI/Abdominal exam: Present: normal bowel sounds, soft, tenderness (epigastric area), no peritoneal signs. Absent: guarding, hepatomegaly, mass, rebound, splenomegaly - Extremities Exam Extremities exam: Present: full ROM, normal capillary refill, warm, radial pulses palpable and symmetrical. Absent: calf tenderness, joint swelling, pedal edema, tenderness - Back Exam Back exam: Absent: CVA tenderness (L), CVA tenderness (R) - Neurological Exam Neurological exam: Present: alert, CN II-XII intact, oriented X3, no focal deficits, strengths equal and symetr throughout - Psychiatric Psychiatric exam: Present: normal affect, normal mood - Skin Skin exam: Present: dry, intact, warm Internal Med - H&P Results - Labs CBC & Chem 7: 11/20/18 17:33 04/17/19 17:33 Labs: Short CBC 11/20/18 Range/Units 17:33 WBC 8.5 (4.3-11.1) K/mcL Hgb 13.1 (11.5-15.4) g/dL Hct 36.9 (35.3-44.9) % Plt Count 178 (140-400) K/mcL Neutrophils # 5.3 (1.6-8.9) K/mcL BMP 11/20/18 17:33 Sodium 139 Potassium 3.6 Chloride 98 Carbon Dioxide 29 BUN 37 H Creatinine 0.88 Glucose 110 H Calcium 9.6 Liver Function 11/20/18 Range/Units 17:33 Total Bilirubin 0.6 (0.3-1.0) mg/dL Direct Bilirubin 0.1 (0.0-0.2) mg/dL AST 18 (13-39) Units/L ALT 13 (7-52) Units/L Alkaline Phosphatase 45 (34-104) Units/L Albumin 4.0 (3.5-5.7) g/dL - Impressions ITS Impressions Abdomen/Pelvis CT 11/20/18 17:33 IMPRESSION: Extensive diverticulosis of the large bowel, but without convincing CT evidence of diverticulitis. Possible mural thickening of the gastric antrum, similar when compared to the previous exam. Correlate with clinical evidence of gastritis. D/ / Campos Ramirez MD / Campos Ramirez MD Interpreting Provider: Campos Ramirez MD - Diagnostic Studies CT scan - abdomen Status: image reviewed by me (Report reviewed as well: gastritis; diverticulosis) - Assessment and Plan (1) GI bleed Current Visit: Yes Status: Acute Assessment and plan: 1. Suspect UGI source +/- diverticular bleed. 2. Will place on Protonix drip and continue H2 blockers. 3. Will monitor H/H Q6H and place on telemetry. 4. I asked J2EE JAVA DEVELOPER to place a second IV. 5. Surgical team consulted for probable endoscopy. 6. Hold ASA and Plavix for now due to high concern for gastritis/ulcer. Last PCI/stent several years ago per family. Qualifiers: GI bleed type/associated pathology: gastritis Gastritis type: acute gastritis Qualified Code(s): K29.01 - Acute gastritis with bleeding (2) Dysuria Current Visit: Yes Status: Acute Assessment and plan: 1. Will order U/A with reflex culture. 2. Will prescribe antibiotics if indicated. (3) CAD (coronary artery disease) Current Visit: Yes Status: Chronic Assessment and plan: 1. No sign or symptom of angina presently. 2. Continue home meds as appropriate. 3. Hold DAPT for now due to GI bleed. 4. Will order EKG and monitor on telemetry. Qualifiers: Coronary Disease-Associated Artery/Lesion type: [place] artery [place] vs. transplanted heart: [place] heart Associated angina: without angina Qualified Code(s): I25.10 - Atherosclerotic heart disease of [place] coronary artery without angina pectoris (4) DVT prophylaxis Current Visit: Yes Status: Acute Assessment and plan: 1. EPCD's.
[2018-11-20 22:58] LABS: Hematocrit 34.5 % (35.3-44.9); Hemoglobin 11.9 g/dL (11.5-15.4)
[2018-11-21] MEDS: Pantoprazole 40 MG in 0.9 % Sodium Chloride Mini Bag 100 ML IVC SCH ×5 (00:28→21:25)
[2018-11-21] MEDS: *HR* HYDROcodone/Acet 5/325 mg TABLET PO PRN ×3 (00:29→23:18)
[2018-11-21 05:38] LABS: Basophils # 0.1 K/mcL (0.0-0.2); Basophils % 0.6 %; Eosinophils # 0.3 K/mcL (0.0-0.6); Eosinophils % 2.8 %; Hematocrit 35.6 % (35.3-44.9); Hemoglobin 12.5 g/dL (11.5-15.4); Immature Granulocytes % 0.2 % (0-4); Lymphocytes # 2.9 K/mcL (0.6-4.6); Lymphocytes % 30.3 %; Mean Corpuscular HGB Conc 35.1 g/dL (31.6-35.5); Mean Corpuscular Hemoglobin 30.9 pg (28.0-33.3); Mean Corpuscular Volume 87.9 fL (83.0-100.0); Mean Platelet Volume 11.2 fL (9.4-12.4); Monocytes # 0.8 K/mcL (0.0-1.3); Monocytes % 8.1 %; Neutrophils # 5.5 K/mcL (1.6-8.9); Platelet Count 170 K/mcL (140-400); Red Blood Count 4.05 M/mcL (3.82-4.97); Red Cell Distribution Width 12.1 % (11.5-14.5)
[2018-11-21 05:46] LABS: Alanine Aminotransferase 41 Units/L (7-52); Albumin 3.8 g/dL (3.5-5.7); Albumin/Globulin Ratio 1.9 (1.1-2.2); Alkaline Phosphatase 66 Units/L (34-104); Aspartate Amino Transferase 129 Units/L (13-39); BUN/Creatinine Ratio 37 (6-26); Bilirubin,Total 1.1 mg/dL (0.3-1.0); Blood Urea Nitrogen 28 mg/dL (8-23); Calcium 9.1 mg/dL (8.6-10.3); Carbon Dioxide 30 mEq/L (23-29); Chloride 99 mEq/L (98-107); Glucose 96 mg/dL (70-105); Magnesium 1.7 mg/dL (1.6-2.6); Osmolality,Calculated 291 (280-300); Potassium 2.8 mEq/L (3.5-5.1); Sodium 138 mEq/L (136-145); Total Protein 5.8 g/dL (6.4-8.9); eGFR For Non-African Americans > 60 (> 60)
[2018-11-21 05:53] LABS: Activated Partial Thrombo Time 30.6 Seconds (26.0-36.0)
--- NOTE | 2018-11-21 06:53 | AcuteCare Surgery Consult Note ---
Date of Encounter: 11/21/18 Time of Encounter: 06:49 Assessment and Plan (1) Melena Current Visit: Yes Status: Acute 88F h/o CAD/DE currently on plavix 2/2 cardiac stenting who presents with LGIB with associated hemodynamic symptoms, BP, HR wnl; CT reveals significant diverticulosis; I suspect that her bleeding is related to her diverticulosis CLD, bowel prep NPO at midnight plan for EGD, colonoscopy on 11/22 hold antiplatelet and chemical dvt prophylaxis trend h/h x 24hrs vitals q4 History of Present Illness Consult date: 11/21/18 Reason for consult: other (lower GI bleeding) History of present illness: 88F PMH significant for CAD requiring cardiac stent placement who presents with one day history of lower GI bleeding. The patient states that has been bleeding all day and has had associated dizziness and lightheadedness. per the patient she has not had a colonoscopy in a long time, but does state that no pathology was found. She has had colon surgery, but not related to malignancy. 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 No reports of fevers, chills, unexplained weight loss, night sweats, nor change in appetite. She denies any fevers, chills, or night sweats. A CT scan was obtained, which was reviewed and interpreted by me, which demonstrated significant diverticulosis, no malignany. Surgery was consulted for management recommendations. Past Med Surg Social Fam HX - Past Medical History Medical history: arthritis, asthma, CHF, COPD, hypertension, kidney stones, myocardial infarction, thyroid disease Additional medical history: CARDIAC STENTS Psychiatric history: anxiety - Past Surgical History Surgical History: appendectomy, colostomy, herniorrhaphy, hysterectomy Additional surgical history: 2015 HERNIA REPAIR WITH A TWISTED BOWEL, - Social History Smoking Status: Never smoker Smokeless Tobacco Status: No Alcohol use: none Drug use: none - Family History Mother Living Status: Hx Family Cardiac Disorders: Yes Hx Family GI Disorders: No Father Living Status: Hx Family Cardiac Disorders: Yes Hx Family GI Disorders: No Medications and Allergies Citalopram Hydrobromide [Celexa] 20 mg PO QPM 02/10/18 [History] Clopidogrel [Plavix] 75 mg PO DAILY 02/10/18 [History] Enalapril Maleate [Vasotec] 20 mg PO BID 02/10/18 [History] Isosorbide MONOnitrate (24 HR) [Imdur] 60 mg PO DAILY 02/10/18 [History] Metoprolol [Lopressor] 25 mg PO BID 02/10/18 [History] Ranitidine HCl [Acid Senior Research Consultant] 150 mg PO BID 02/10/18 [History] hydroCHLOROthiazide [Hydrochlorothiazide] 25 mg PO DAILY 02/10/18 [History] Cholecalciferol (D-3) [Vitamin D] 1,000 unit PO DAILY 11/20/18 [History] Cyanocobalamin (Vitamin B-12) [Vitamin B-12] 2,500 mcg SL DAILY 11/20/18 [History] Pantoprazole Sodium [Protonix] 40 mg PO DAILY 11/20/18 [History] Allergy/AdvReac Type Severity Reaction Status Date / Time No Known Allergies Allergy Verified 09/06/17 14:53 Review of Systems All systems PM: 12 point ROS negative besides HPI findings General Surgery Exam Initial Vital Signs Temp Pulse Resp BP Pulse Ox 98.3 F 91 16 129/70 96 11/20/18 16:36 11/20/18 16:36 11/20/18 16:36 11/20/18 16:36 11/20/18 16:36 - General physical appearance no distress - Eyes normal ocular movement - ENT normocephalic - Neck trachea midline, no lymphadectomy - Respiratory normal expansion, normal respiratory effort - Cardiovascular Cardiovascular exam: Present: RRR - Abdomen Abdomen general surgery: Present: soft, non tender - Integumentary Integumentary general surgery: Present: warm and dry, no abnormal pigmentation - Neurologic Present: CN 2-12 grossly intact - Musculoskeletal Present: normal posture - Psychiatric Psychiatric general surgery: Present: A&Ox3 Exam Initial Vital Signs Temp Pulse Resp BP Pulse Ox 98.3 F 91 16 129/70 96 11/20/18 16:36 11/20/18 16:36 11/20/18 16:36 11/20/18 16:36 11/20/18 16:36 Results - Labs 11/21/18 05:04 11/21/18 05:04 Abnormal lab results Potassium 2.8 mEq/L (3.5-5.1) L 11/21/18 05:04 Carbon Dioxide 30 mEq/L (23-29) H 11/21/18 05:04 BUN 28 mg/dL (8-23) H 11/21/18 05:04 BUN/Creatinine Ratio 37 (6-26) H 11/21/18 05:04 Total Bilirubin 1.1 mg/dL (0.3-1.0) H 11/21/18 05:04 AST 129 Units/L (13-39) H 11/21/18 05:04 Serum Total Protein 5.8 g/dL (6.4-8.9) L 11/21/18 05:04 Globulin 2.0 g/dL (2.4-3.5) L 11/21/18 05:04 Stool Occult Bld Scrn Positive (Negative) A 11/20/18 17:38 Diabetes panel 11/20/18 11/21/18 Range/Units 17:33 05:04 Sodium 139 138 (136-145) mEq/L Potassium 3.6 2.8 L (3.5-5.1) mEq/L Chloride 98 99 (98-107) mEq/L Carbon Dioxide 29 30 H (23-29) mEq/L BUN 37 H 28 H (8-23) mg/dL Creatinine 0.88 0.76 (0.60-1.20) mg/dL Glucose 110 H 96 (70-105) mg/dL Calcium 9.6 9.1 (8.6-10.3) mg/dL AST 18 129 H (13-39) Units/L ALT 13 41 (7-52) Units/L Alkaline Phosphatase 45 66 (34-104) Units/L Albumin 4.0 3.8 (3.5-5.7) g/dL Calcium panel 11/20/18 11/21/18 Range/Units 17:33 05:04 Calcium 9.6 9.1 (8.6-10.3) mg/dL Albumin 4.0 3.8 (3.5-5.7) g/dL Pituitary panel 11/20/18 11/21/18 Range/Units 17:33 05:04 Sodium 139 138 (136-145) mEq/L Potassium 3.6 2.8 L (3.5-5.1) mEq/L Chloride 98 99 (98-107) mEq/L Carbon Dioxide 29 30 H (23-29) mEq/L BUN 37 H 28 H (8-23) mg/dL Creatinine 0.88 0.76 (0.60-1.20) mg/dL Glucose 110 H 96 (70-105) mg/dL Calcium 9.6 9.1 (8.6-10.3) mg/dL Adrenal panel 11/20/18 11/21/18 Range/Units 17:33 05:04 Sodium 139 138 (136-145) mEq/L Potassium 3.6 2.8 L (3.5-5.1) mEq/L Chloride 98 99 (98-107) mEq/L Carbon Dioxide 29 30 H (23-29) mEq/L BUN 37 H 28 H (8-23) mg/dL Creatinine 0.88 0.76 (0.60-1.20) mg/dL Glucose 110 H 96 (70-105) mg/dL Calcium 9.6 9.1 (8.6-10.3) mg/dL Total Bilirubin 0.6 1.1 H (0.3-1.0) mg/dL AST 18 129 H (13-39) Units/L ALT 13 41 (7-52) Units/L Alkaline Phosphatase 45 66 (34-104) Units/L Albumin 4.0 3.8 (3.5-5.7) g/dL All other labs normal. - Imaging CT scan - abdomen: report reviewed, image reviewed CT scan - pelvis: report reviewed, image reviewed Consult Discharge Plan - Plan Referrals: Chriss Langford [Primary Care Provider] -
[2018-11-21] MEDS ORDERED: Famotidine 20 MG TABLET PO SCH (07:30)
[2018-11-21] MEDS: Cholecalciferol (D-3) 1,000 UNIT TABLET PO SCH (08:36)
[2018-11-21] MEDS: 0.9 % Sodium Chloride 1,000 ML IVC SCH ×2 (08:37→21:26)
[2018-11-21] MEDS: Isosorbide MONOnitrate (24 HR) 60 MG TAB.ER.24H PO SCH (10:15)
[2018-11-21] MEDS ORDERED: Ipratropium/Albuterol Neb 3 ML IH PRN (10:44)
--- NOTE | 2018-11-21 13:13 | Internal Med Progress Note ---
<Fang White E - Last Filed: 11/21/18 15:19> Hospitalist Progress Note - Encounter Date of Encounter: 11/21/18 Time of Encounter: 08:30 - Subjective Interval History: Mr. Acuna is a 88-year-old female who presented to the ER yesterday with a one-day history of black tarry stools that progressed to gross bloody stool. She states she had not been feeling well earlier in the day. ER workup showed no signs of anemia the patient was Hemoccult positive. CT scan showed evidence of gastritis and diverticulosis. History of partial bowel resection due to bowel obstruction diverticulosis. Currently on Plavix long-term coronary artery disease. Has been taking Excedrin and Aleve for headaches. Today patient states that she is feeling somewhat better. She still feels weak and still is still having bloody diarrhea. She states that she just was not feeling herself before this started. She is concerned about her need for duo nebs due to this not being on her home med list. Acute care surgery plans to do EGD and colonoscopy tomorrow. Patient has started bowel prep. - Exam Vitals: Temp Pulse Resp BP Pulse Ox 97.6 F 80 18 102/65 95 11/21/18 11:32 11/21/18 11:32 11/21/18 11:32 11/21/18 11:32 11/21/18 11:32 Exam: General: AAO 3, image questions appropriately, mild distress Head: normocephalic, atraumatic Eyes: ISIDRO, no icterus Cardio: RRR, no mumurs, rubs, or gallops Respiratory: CTAB, no wheezing, rhonchi, rales Abd: normal bowel sounds, gastric tenderness, lower back and rib pain, lower abdominal tenderness Extremties: no pedal edema, pulses equal bilaterally, warm Skin: warm, dry, intact - Assessment and Plan (1) GI bleed Current Visit: Yes Status: Acute Assessment and Plan: This could possibly be from upper GI source or a diverticular bleed She does state she uses Excedrin and Aleve quite often for headaches Continue to monitor H&H Protonix Acute-care surgery states they will do an endoscopy and colonoscopy tomorrow Continue to hold Plavix (2) CAD (coronary artery disease) Current Visit: Yes Status: Chronic Assessment and Plan: Continue home medications Hold Plavix (3) Dysuria Current Visit: Yes Status: Acute Assessment and Plan: Patient previously admitted to dysuria but today denies it UA with reflex culture was indicated but has not yet been collected We will collect and prescribe antibiotics accordingly if positive for UTI (4) DVT prophylaxis Current Visit: Yes Status: Acute Comments: scds DVT Prophylaxis: scds - Time Spent with Patient Total time spent is greater than 50% in coordination of care (as documented) at patient's floor/unit and/or counseling patient: Internal Medicine: Result - Labs CBC & Chem 7: 11/21/18 05:04 11/21/18 05:04 Labs: Short CBC 11/20/18 11/20/18 11/21/18 Range/Units 17:33 22:48 05:04 WBC 8.5 9.5 (4.3-11.1) K/mcL Hgb 13.1 11.9 12.5 (11.5-15.4) g/dL Hct 36.9 34.5 L 35.6 (35.3-44.9) % Plt Count 178 170 (140-400) K/mcL Neutrophils # 5.3 5.5 (1.6-8.9) K/mcL BMP 11/20/18 11/21/18 17:33 05:04 Sodium 139 138 Potassium 3.6 2.8 L Chloride 98 99 Carbon Dioxide 29 30 H BUN 37 H 28 H Creatinine 0.88 0.76 Glucose 110 H 96 Calcium 9.6 9.1 Liver Function 11/20/18 11/21/18 Range/Units 17:33 05:04 Total Bilirubin 0.6 1.1 H (0.3-1.0) mg/dL Direct Bilirubin 0.1 (0.0-0.2) mg/dL AST 18 129 H (13-39) Units/L ALT 13 41 (7-52) Units/L Alkaline Phosphatase 45 66 (34-104) Units/L Albumin 4.0 3.8 (3.5-5.7) g/dL - ABG Interpretation ABG results: PT/INR, D-dimer PT 11.0 Seconds (9.4-12.1) 11/21/18 05:04 - Impressions Impressions Abdomen/Pelvis CT 11/20/18 17:33 IMPRESSION: Extensive diverticulosis of the large bowel, but without convincing CT evidence of diverticulitis. Possible mural thickening of the gastric antrum, similar when compared to the previous exam. Correlate with clinical evidence of gastritis. D/ / Campos Ramirez MD / Campos Ramirez MD Interpreting Provider: Campos Ramirez MD Consult Discharge Plan - Plan Referrals: Chriss Langford [Primary Care Provider] - <Jed Catherine - Last Filed: 11/21/18 17:38> Hospitalist Progress Note - Encounter Date of Encounter: 11/21/18 - Exam Vitals: Temp Pulse Resp BP Pulse Ox 97.9 F 84 15 132/59 97 11/21/18 14:57 11/21/18 14:57 11/21/18 14:57 11/21/18 14:57 11/21/18 14:57 - Assessment and Plan (1) Hypokalemia Current Visit: Yes Status: Acute (2) Melena Current Visit: Yes Status: Acute (3) DVT prophylaxis Current Visit: Yes Status: Acute Comments: scds (4) CAD (coronary artery disease) Current Visit: Yes Status: Chronic (5) GI bleed Current Visit: Yes Status: Acute (6) Dysuria Current Visit: Yes Status: Acute (7) Hypertension Current Visit: No Status: Chronic (8) Hypothyroidism Current Visit: No Status: Chronic - Time Spent with Patient Total time spent is greater than 50% in coordination of care (as documented) at patient's floor/unit and/or counseling patient: Internal Medicine: Result - Labs CBC & Chem 7: 11/21/18 05:04 11/21/18 05:04 Labs: Short CBC 11/20/18 11/20/18 11/21/18 Range/Units 17:33 22:48 05:04 WBC 8.5 9.5 (4.3-11.1) K/mcL Hgb 13.1 11.9 12.5 (11.5-15.4) g/dL Hct 36.9 34.5 L 35.6 (35.3-44.9) % Plt Count 178 170 (140-400) K/mcL Neutrophils # 5.3 5.5 (1.6-8.9) K/mcL BMP 11/20/18 11/21/18 17:33 05:04 Sodium 139 138 Potassium 3.6 2.8 L Chloride 98 99 Carbon Dioxide 29 30 H BUN 37 H 28 H Creatinine 0.88 0.76 Glucose 110 H 96 Calcium 9.6 9.1 Liver Function 11/20/18 11/21/18 Range/Units 17:33 05:04 Total Bilirubin 0.6 1.1 H (0.3-1.0) mg/dL Direct Bilirubin 0.1 (0.0-0.2) mg/dL AST 18 129 H (13-39) Units/L ALT 13 41 (7-52) Units/L Alkaline Phosphatase 45 66 (34-104) Units/L Albumin 4.0 3.8 (3.5-5.7) g/dL - ABG Interpretation ABG results: PT/INR, D-dimer PT 11.0 Seconds (9.4-12.1) 11/21/18 05:04 - Impressions Impressions Abdomen/Pelvis CT 11/20/18 17:33 IMPRESSION: Extensive diverticulosis of the large bowel, but without convincing CT evidence of diverticulitis. Possible mural thickening of the gastric antrum, similar when compared to the previous exam. Correlate with clinical evidence of gastritis. D/ / Campos Ramirez MD / Campos Ramirez MD Interpreting Provider: Campos Ramirez MD - Attending Attestation I examined this patient and my medical decision-making was reviewed with the Re sident Physician on 11/21/18. I agree with the documented findings, disposition and treatment plan as described except to the extent set forth below. Ms Acuna is currently admitted for acute LGI bleed. She remains moderate to high risk due to potential for worsening clinical status. Ms Acuna is getting bowel prep at this time. No fever or chills. Feels weak. No urinary symptoms. Exam alert Comfortable Mucus membranes dry Heart reg now Lungs clear ABd soft - not tender now. No edema I/P 1. Acute lower GI bleed suspect diverticular - endoscopy tomorrow 2. Monitor blood counts Further diagnoses and plan as above. __ <CindyFang E - Last Filed: 11/21/18 15:19> (1) GI bleed Qualifiers: GI bleed type/associated pathology: gastritis Gastritis type: acute gastritis Qualified Code(s): K29.01 - Acute gastritis with bleeding (2) CAD (coronary artery disease) Qualifiers: Coronary Disease-Associated Artery/Lesion type: [place] artery [place] vs. transplanted heart: [place] heart Associated angina: without angina Qualified Code(s): I25.10 - Atherosclerotic heart disease of [place] coronary artery without angina pectoris <Jed Catherine A - Last Filed: 11/21/18 17:38> (4) CAD (coronary artery disease) Qualifiers: Coronary Disease-Associated Artery/Lesion type: [place] artery [place] vs. transplanted heart: [place] heart Associated angina: without angina Qualified Code(s): I25.10 - Atherosclerotic heart disease of [place] coronary artery without angina pectoris (5) GI bleed Qualifiers: GI bleed type/associated pathology: gastritis Gastritis type: acute gastritis Qualified Code(s): K29.01 - Acute gastritis with bleeding (7) Hypertension Qualifiers: Hypertension type: essential hypertension Qualified Code(s): I10 - Essential (primary) hypertension (8) Hypothyroidism Qualifiers: Hypothyroidism type: acquired Qualified Code(s): E03.9 - Hypothyroidism, unspecified
--- NOTE | 2018-11-21 17:37 | Electrocardiograph Report ---
[place] [id number] Test Date: 2018-11-20 Pat Name: Emmy Acuna Department: EXAM12 Room: 3A63 Gender: F Junior Project Coordinator: : 1930 Requested By: Ivan Snow Order Number: [id number] Reading MD: Paula Gtz Measurements Intervals [place] Rate: 83 P: 54 NM: 206 QRS: -9 QRSD: 125 T: 53 QT: 410 QTc: 482 Interpretive Statements Sinus rhythm Atrial premature complexes Right bundle branch block Left ventricular hypertrophy Electronically Signed On 11-21-2018 17:35:28 EDT by Paula Gtz
[2018-11-22] MEDS: Pantoprazole 40 MG in 0.9 % Sodium Chloride Mini Bag 100 ML IVC SCH ×4 (02:51→22:06)
[2018-11-22 06:58] LABS: Basophils % 0.5 %; Eosinophils # 0.3 K/mcL (0.0-0.6); Eosinophils % 3.9 %; Hematocrit 32.3 % (35.3-44.9); Immature Granulocytes % 0.3 % (0-4); Lymphocytes # 1.8 K/mcL (0.6-4.6); Mean Corpuscular HGB Conc 34.1 g/dL (31.6-35.5); Mean Corpuscular Hemoglobin 30.7 pg (28.0-33.3); Mean Corpuscular Volume 90.2 fL (83.0-100.0); Mean Platelet Volume 11.8 fL (9.4-12.4); Monocytes # 0.5 K/mcL (0.0-1.3); Monocytes % 6.8 %; Neutrophils # 4.1 K/mcL (1.6-8.9); Platelet Count 148 K/mcL (140-400); Red Blood Count 3.58 M/mcL (3.82-4.97); Red Cell Distribution Width 12.3 % (11.5-14.5); Segmented Neutrophils % 61.5 %
[2018-11-22 07:16] LABS: Alanine Aminotransferase 127 Units/L (7-52); Albumin 3.5 g/dL (3.5-5.7); Albumin/Globulin Ratio 2.1 (1.1-2.2); Alkaline Phosphatase 82 Units/L (34-104); Aspartate Amino Transferase 189 Units/L (13-39); BUN/Creatinine Ratio 16 (6-26); Bilirubin,Total 0.6 mg/dL (0.3-1.0); Blood Urea Nitrogen 9 mg/dL (8-23); Calcium 8.1 mg/dL (8.6-10.3); Carbon Dioxide 27 mEq/L (23-29); Chloride 104 mEq/L (98-107); Globulin 1.7 g/dL (2.4-3.5); Glucose 102 mg/dL (70-105); Osmolality,Calculated 287 (280-300); Potassium 3.7 mEq/L (3.5-5.1); Sodium 139 mEq/L (136-145); Total Protein 5.2 g/dL (6.4-8.9); eGFR For Non-African Americans > 60 (> 60)
--- NOTE | 2018-11-22 08:57 | Event Note ---
Date of Encounter: 11/22/18 Time of Encounter: 08:56 Patient was seen and examined. I agree with the progress note as written by the resident physician. Admitted with suspected GI bleed. Hemoglobin has been stable and patient has been hemodynamic stable. She is on plavix for history of coronary disease with stents. Last stent was many years ago. There is plans for EGD and colonoscopy today. GEN: NAD CVS: RRR. S1, S2, No m/r/g RESP: CTAB ABD: Soft, NT, ND, +BS EXT: No edema. 2+ DP. No rashes NEURO: Nonfocal Plans for EGD and colonoscopy today. Continue Protonix drip. Monitor H&H BUN noted elevated on admission May have to stop plavix at d/c depending on findings of scopes. stents were many years ago Continue home meds.
--- NOTE | 2018-11-22 08:57 | Internal Med Progress Note ---
Hospitalist Progress Note - Encounter Date of Encounter: 11/22/18 Time of Encounter: 09:00 - Subjective Interval History: Mr. Acuna is a 88-year-old female who presented to the ER yesterday with a one-day history of black tarry stools that progressed to gross bloody stool. She states she had not been feeling well earlier in the day. ER workup showed no signs of anemia the patient was Hemoccult positive. CT scan showed evidence of gastritis and diverticulosis. History of partial bowel resection due to bowel obstruction diverticulosis. Currently on Plavix long-term coronary artery disease. Has been taking Excedrin and Aleve for headaches. Today patient states that she is feeling somewhat better. She still feels weak denies chest pain. She does state that she has some abdominal pain in the gastric region. - Exam Vitals: Temp Pulse Resp BP Pulse Ox 99.0 F 74 16 113/60 94 11/21/18 23:23 11/22/18 06:08 11/22/18 06:08 11/22/18 06:08 11/22/18 06:08 Exam: General: AAO 3, image questions appropriately, mild distress Head: normocephalic, atraumatic Eyes: ISIDRO, no icterus Cardio: RRR, no mumurs, rubs, or gallops Respiratory: CTAB, no wheezing, rhonchi, rales Abd: normal bowel sounds, gastric tenderness, lower back and rib pain, lower abdominal tenderness Extremties: no pedal edema, pulses equal bilaterally, warm Skin: warm, dry, intact - Assessment and Plan (1) GI bleed Current Visit: Yes Status: Acute Assessment and Plan: EGD and colonoscopy completed. EGD showed two small gastric ulcers in the cardia. Small clot like material overlying the ulcers with no active bleeding. Biopsy obtained. Colonoscopy demonstrated small and large size diverticula throughout the entire colon. Moderate size hemorrhoids. No active bleeding identified. Carafate and start oral diet. Can advance as tolerated. (2) CAD (coronary artery disease) Current Visit: Yes Status: Chronic Assessment and Plan: Continue home medications Hold Plavix (3) Dysuria Current Visit: Yes Status: Acute Assessment and Plan: Patient previously admitted to dysuria but today denies it UA with reflex culture was indicated but has not yet been collected We will collect and prescribe antibiotics accordingly if positive for UTI (4) DVT prophylaxis Current Visit: Yes Status: Acute Assessment and Plan: scds Comments: scds DVT Prophylaxis: scds - Time Spent with Patient Total time spent is greater than 50% in coordination of care (as documented) at patient's floor/unit and/or counseling patient: Internal Medicine: Result - Labs CBC & Chem 7: 11/22/18 05:44 11/22/18 05:44 Labs: Short CBC 11/22/18 Range/Units 05:44 WBC 6.6 (4.3-11.1) K/mcL Hgb 11.0 L D (11.5-15.4) g/dL Hct 32.3 L (35.3-44.9) % Plt Count 148 (140-400) K/mcL Neutrophils # 4.1 (1.6-8.9) K/mcL BMP 11/21/18 11/22/18 16:59 05:44 Sodium 139 Potassium 3.2 L 3.7 Chloride 104 Carbon Dioxide 27 BUN 9 Creatinine 0.55 L Glucose 102 Calcium 8.1 L Liver Function 11/22/18 Range/Units 05:44 Total Bilirubin 0.6 (0.3-1.0) mg/dL AST 189 H (13-39) Units/L ALT 127 H (7-52) Units/L Alkaline Phosphatase 82 (34-104) Units/L Albumin 3.5 (3.5-5.7) g/dL - ABG Interpretation ABG results: PT/INR, D-dimer PT 11.0 Seconds (9.4-12.1) 11/21/18 05:04 Consult Discharge Plan - Plan Referrals: Chriss Langford [Primary Care Provider] - (1) GI bleed Qualifiers: GI bleed type/associated pathology: gastritis Gastritis type: acute gastritis Qualified Code(s): K29.01 - Acute gastritis with bleeding (2) CAD (coronary artery disease) Qualifiers: Coronary Disease-Associated Artery/Lesion type: [place] artery [place] vs. transplanted heart: [place] heart Associated angina: without angina Qualified Code(s): I25.10 - Atherosclerotic heart disease of [place] coronary artery without angina pectoris
[2018-11-22] MEDS ORDERED: Famotidine 20 MG TABLET PO SCH (09:00)
[2018-11-22] MEDS: Cholecalciferol (D-3) 1,000 UNIT TABLET PO SCH (09:13)
[2018-11-22] MEDS: Isosorbide MONOnitrate (24 HR) 60 MG TAB.ER.24H PO SCH (09:14)
--- NOTE | 2018-11-22 09:32 | AcuteCareSurgery Progress Note ---
Date of Encounter: 11/22/18 Time of Encounter: 09:32 - Assessment and Plan (1) Melena Current Visit: Yes Status: Acute This is an 88-year-old female with past medical history significant for coronary artery disease status post cardiac stent on Plavix who initially presented complaining of lower GI bleeding. Associated with dizziness/lightheadedness. S urgical history including appendectomy, colostomy, herniorrhaphy, hysterectomy - CT showed signs of diverticulosis without diverticulitis - Vitals remained hemodynamically stable - Additionally patient hemoglobin/hematocrit = 11.0/32.3 this morning - Loose/watery bowel movements of bowel prep. Evidence of blood in stool as of this morning PLAN: - Plan for EGD and colonoscopy today - Continue with nothing by mouth - Hold antiplatelet therapy for now - SCDs for DVT prophylaxis - Continue to monitor vitals for any signs of hemodynamic instability - Continue to monitor hemoglobin and hematocrit - Monitor for worsening bleeding, worsening abdominal pain, increased fatigue/lethargy/change in mental status - Continue with Protonix drip; may consider Protonix BID - Otherwise medical management per primary team Subjective Patient reports: no new complaints, feels better, pain is less, voiding w/o difficulty, flatus, bowel movement, diarrhea, blood in stool, afebrile Narrative: Patient seen and examined at bedside this morning. She reports no acute complaints. She does note that she has had multiple watery/loose bowel movements. As of this morning the nurse did report that there was blood in her stool. She otherwise reports no acute complaints. She denies abdominal pain, nausea, vomiting. She additionally denies fatigue, lethargy, chest pain or shortness of breath. Plan for EGD/colonoscopy today. Objective Vital Signs - Last 8 Hours Pulse Resp BP Pulse Ox 11/22/18 06:08 74 16 113/60 94 Intake and Output 11/21/18 11/22/18 11/22/18 23:59 07:59 15:59 Intake Total 847 / 847 200 / 200 Output Total 500 / 500 300 / 300 Balance 347 / 347 -100 / -100 Intake: IV Fluids 847 / 847 200 / 200 0.9 % Sodium Chloride 1,000 ML 747 / 747 @ 75 mls/hr IVC [id number] [facility] Rx #:[id number] Protonix 40 MG In 0.9 % Sodium 100 / 100 200 / 200 Chloride (Mini-Bag +) 100 ML @ 20 mls/hr IVC .Q5H [facility] Rx#: [id number] Output: Urine 0 / 0 Stool 500 / 500 Urine/Stool Mix 300 / 300 Other: Stool Consistency liquid Stool Color Dark Red Blood Blood Glucose* 110 - General physical appearance well developed, well nourished, no distress, no pain - Eyes normal ocular movement - ENT no hearing loss, atraumatic, normocephalic - Neck Neck exam: trachea midline - Respiratory normal expansion, normal respiratory effort, clear to auscultation - Cardiovascular Cardiovascular exam: Present: RRR, regular rhythm, no murmurs/rubs/gallops - Abdomen Abdomen: Present: bowel sounds present, soft, non tender - Integumentary no rash, no abnormal pigmentation - Psychiatric oriented to time, oriented to person, oriented to place, speech is normal, memory intact - Labs 11/22/18 05:44 11/22/18 05:44 Diabetes panel 11/21/18 11/22/18 Range/Units 16:59 05:44 Sodium 139 (136-145) mEq/L Potassium 3.2 L 3.7 (3.5-5.1) mEq/L Chloride 104 (98-107) mEq/L Carbon Dioxide 27 (23-29) mEq/L BUN 9 (8-23) mg/dL Creatinine 0.55 L (0.60-1.20) mg/dL Glucose 102 (70-105) mg/dL Calcium 8.1 L (8.6-10.3) mg/dL AST 189 H (13-39) Units/L ALT 127 H (7-52) Units/L Alkaline Phosphatase 82 (34-104) Units/L Albumin 3.5 (3.5-5.7) g/dL Calcium panel 11/22/18 Range/Units 05:44 Calcium 8.1 L (8.6-10.3) mg/dL Albumin 3.5 (3.5-5.7) g/dL Pituitary panel 11/21/18 11/22/18 Range/Units 16:59 05:44 Sodium 139 (136-145) mEq/L Potassium 3.2 L 3.7 (3.5-5.1) mEq/L Chloride 104 (98-107) mEq/L Carbon Dioxide 27 (23-29) mEq/L BUN 9 (8-23) mg/dL Creatinine 0.55 L (0.60-1.20) mg/dL Glucose 102 (70-105) mg/dL Calcium 8.1 L (8.6-10.3) mg/dL Adrenal panel 11/21/18 11/22/18 Range/Units 16:59 05:44 Sodium 139 (136-145) mEq/L Potassium 3.2 L 3.7 (3.5-5.1) mEq/L Chloride 104 (98-107) mEq/L Carbon Dioxide 27 (23-29) mEq/L BUN 9 (8-23) mg/dL Creatinine 0.55 L (0.60-1.20) mg/dL Glucose 102 (70-105) mg/dL Calcium 8.1 L (8.6-10.3) mg/dL Total Bilirubin 0.6 (0.3-1.0) mg/dL AST 189 H (13-39) Units/L ALT 127 H (7-52) Units/L Alkaline Phosphatase 82 (34-104) Units/L Albumin 3.5 (3.5-5.7) g/dL - Imaging CT scan - abdomen: report reviewed CT scan - pelvis: report reviewed Consult Discharge Plan - Plan Referrals: Chriss Langford [Primary Care Provider] -
[2018-11-22] MEDS ORDERED: *HR* Propofol 200 MG/20 ML VIAL IVP ONE (10:13)
[2018-11-22] MEDS ORDERED: Lidocaine -MPF 2% 2 ML VIAL ONE (10:13)
--- NOTE | 2018-11-22 10:48 | Anesthesia Evaluation PreOp ---
Date of Encounter: 11/22/18 Time of Encounter: 10:46 - Past History Planned Operation: EGD/Colon re: LGIB Cardiac History: OR (CAD), Cardiac Stent (Pt reports at least 2 stents placed > 5 years ago) Pulmonary History: Asthma, COPD, Other (SOB/VENEGAS) FLIGHT PURSER History: Other (Anxiety) Other Medical History: Thyroid, Other (Colostomy) Anesthesia History: No Prior Anesthetic Complications, Past Anesthesia (Colostomy, herniorrhaphy, hyster, surgery for "twisted bowel") Alcohol Use: none Drug use: none Medications and Allergies Citalopram Hydrobromide [Celexa] 20 mg PO QPM 02/10/18 [History] Clopidogrel [Plavix] 75 mg PO DAILY 02/10/18 [History] Enalapril Maleate [Vasotec] 20 mg PO BID 02/10/18 [History] Isosorbide MONOnitrate (24 HR) [Imdur] 60 mg PO DAILY 02/10/18 [History] Metoprolol [Lopressor] 25 mg PO BID 02/10/18 [History] Ranitidine HCl [Acid Trailer Sections Assembler] 150 mg PO BID 02/10/18 [History] hydroCHLOROthiazide [Hydrochlorothiazide] 25 mg PO DAILY 02/10/18 [History] Cholecalciferol (D-3) [Vitamin D] 1,000 unit PO DAILY 11/20/18 [History] Cyanocobalamin (Vitamin B-12) [Vitamin B-12] 2,500 mcg SL DAILY 11/20/18 [History] Pantoprazole Sodium [Protonix] 40 mg PO DAILY 11/20/18 [History] Allergy/AdvReac Type Severity Reaction Status Date / Time No Known Allergies Allergy Verified 09/06/17 14:53 - Meds/Allergy Pre-op Review Medications Reviewed: Yes Allergies Reviewed: Yes Beta Blockers on Current Med List: Yes (Metoprolol) If Beta Blockers taken, Date/Time (Last Dose taken): 11/22/2018 @ 0913 Anesthesia Results - Labs 11/22/18 05:44 11/22/18 05:44 Laboratory Tests 11/20/18 11/21/18 11/22/18 17:38 05:04 05:44 WBC 6.6 Hgb 11.0 L D Hct 32.3 L Plt Count 148 PT 11.0 INR 1.0 Est GFR (Non-Af Amer) Stool Occult Bld Scrn Positive A 11/22/18 05:44 WBC Hgb Hct Plt Count PT INR Est GFR (Non-Af Amer) > 60 Stool Occult Bld Scrn Impressions Abdomen/Pelvis CT 11/20/18 17:33 IMPRESSION: Extensive diverticulosis of the large bowel, but without convincing CT evidence of diverticulitis. Possible mural thickening of the gastric antrum, similar when compared to the previous exam. Correlate with clinical evidence of gastritis. D/ / Campos Ramirez MD / Campos Ramirez MD Interpreting Provider: Campos Ramirez MD - Imaging EKG: image reviewed (83bpm - Sinus rhythm Atrial premature complexes Right bundle branch block Left ventricular hypertrophy Electronically Signed On 11-21-2018 17:35:28 EDT by Paula Gtz) Anesthesia Exam Vital Signs Temp Pulse Resp BP Pulse Ox 11/22/18 10:36 99.5 F 73 16 111/69 95 11/22/18 06:08 74 16 113/60 94 11/21/18 23:23 99.0 F 79 18 118/51 94 11/21/18 21:21 99.5 F 113 16 150/78 97 11/21/18 14:57 97.9 F 84 15 132/59 97 11/21/18 11:32 97.6 F 80 18 102/65 95 Intake and Output 11/21/18 11/22/18 11/22/18 23:59 07:59 15:59 Intake Total 847 / 847 200 / 200 Output Total 500 / 500 300 / 300 Balance 347 / 347 -100 / -100 Intake: IV Fluids 847 / 847 200 / 200 0.9 % Sodium Chloride 1,000 ML 747 / 747 @ 75 mls/hr IVC .[id number] [facility] Rx #:[id number] Protonix 40 MG In 0.9 % Sodium 100 / 100 200 / 200 Chloride (Mini-Bag +) 100 ML @ 20 mls/hr IVC .Q5H [facility] Rx#: [id number] Output: Urine 0 / 0 Stool 500 / 500 Urine/Stool Mix 300 / 300 Other: Stool Consistency liquid Stool Color Dark Red Blood Blood Glucose* 110 Height: 4'10" Weight: 148# BMI = 31 NPO (# of Hours): MNoc - HEENT Pupil (Motor): Pupils equal, EOMI Teeth: Edentulous Oral Opening: Greater than 3 - FLIGHT PURSER LOC: Oriented FLIGHT PURSER Motor: Normal RUE, Normal LUE, Normal RLE, Normal LLE, Normal Face FLIGHT PURSER Sensory: Normal: RUE, LUE, RLE, LLE, Face - Cardiac Rhythm: Regular Murmur: None - Pulmonary Breath Sounds: bilateral Clear Respiratory Effort: Symmetrical Anesthesia Assess/Plan ASA Score: 3 Level of consciousness: Cooperative, Oriented, Tranquil Anesthetic Plan: MAC Autologous Blood: Yes Recovery Plan: PACU Anes Supervising Prov Stmt: Pt seen/evaluated, R&B discussed, questions answered and consent obtained. Kolton Del Rio MD
--- NOTE | 2018-11-22 11:53 | Event Note ---
Date of Encounter: 11/22/18 Time of Encounter: 11:52 EGD and colonoscopy completed. EGD showed two small gastric ulcers in the cardia. Small clot like material overlying the ulcers with no active bleeding. Biopsy obtained. Colonoscopy demonstrated small and large size diverticula throughout the entire colon. Moderate size hemorrhoids. No active bleeding identified. Will ensure patient is on Carafate and start oral diet. Can advance as tolerated. Will follow from a distance. From my standpoint patient can be discharged home once okay from the primary service.
--- NOTE | 2018-11-22 13:28 | Physician Discharge Referral ---
Home Health/Hosp Referral Info Transfer to: Home Health Provider in Charge Post Discharge: PCP - Diagnosis (1) GI bleed Priority: Primary Status: Acute (2) CAD (coronary artery disease) Priority: Secondary Status: Chronic (3) Dysuria Priority: Secondary Status: Acute (4) DVT prophylaxis Priority: Secondary Status: Acute - Respiratory Orders Smoking Cessation: Smoking cessation has been advised. For more information, call the [place] Tobacco Quit Line at 7-479-VOJZ-NOW. - Services Needed Following services are medically necessary services: Home Health Aide - Transfer Medications Home Medications: Citalopram Hydrobromide [Celexa] 20 mg PO QPM 02/10/18 [History] Clopidogrel [Plavix] 75 mg PO DAILY 02/10/18 [History] Enalapril Maleate [Vasotec] 20 mg PO BID 02/10/18 [History] Isosorbide MONOnitrate (24 HR) [Imdur] 60 mg PO DAILY 02/10/18 [History] Metoprolol [Lopressor] 25 mg PO BID 02/10/18 [History] Ranitidine HCl [Acid Xerox Machine Operator] 150 mg PO BID 02/10/18 [History] hydroCHLOROthiazide [Hydrochlorothiazide] 25 mg PO DAILY 02/10/18 [History] Cholecalciferol (D-3) [Vitamin D] 1,000 unit PO DAILY 11/20/18 [History] Cyanocobalamin (Vitamin B-12) [Vitamin B-12] 2,500 mcg SL DAILY 11/20/18 [History] Pantoprazole Sodium [Protonix] 40 mg PO DAILY 11/20/18 [History] Allergies/Adverse Reactions: Allergy/AdvReac Type Severity Reaction Status Date / Time No Known Allergies Allergy Verified 09/06/17 14:53 Certification: Further, I certify that my clinical findings support that this patient is homebound (i.e. absences from home require considerable and taxing effort and are for medical reasons or bahai services or infrequently or short duration when for other reasons) because: Homebound Reason: Patient requires assistance of a person or device to safely leave home Attestation: My signature below is to certify that this patient is under my care and that I, or nurse practitioner, or a physician's orthopedic physician assistant working with me, has a [id number] encounter with this patient.
[2018-11-22] MEDS: 0.9 % Sodium Chloride 1,000 ML IVC SCH (17:07)
[2018-11-22] MEDS: *HR* HYDROcodone/Acet 5/325 mg TABLET PO PRN (17:14)
[2018-11-23] MEDS: Pantoprazole 40 MG in 0.9 % Sodium Chloride Mini Bag 100 ML IVC SCH ×3 (02:44→08:50)
[2018-11-23 04:46] VITALS: BP 123/63
[2018-11-23 05:17] LABS: Basophils % 0.5 %; Eosinophils # 0.4 K/mcL (0.0-0.6); Eosinophils % 6.3 %; Hematocrit 28.6 % (35.3-44.9); Hemoglobin 9.7 g/dL (11.5-15.4); Immature Granulocytes % 0.2 % (0-4); Lymphocytes # 1.8 K/mcL (0.6-4.6); Lymphocytes % 30.5 %; Mean Corpuscular HGB Conc 33.9 g/dL (31.6-35.5); Mean Corpuscular Hemoglobin 30.8 pg (28.0-33.3); Mean Corpuscular Volume 90.8 fL (83.0-100.0); Mean Platelet Volume 11.9 fL (9.4-12.4); Monocytes # 0.4 K/mcL (0.0-1.3); Monocytes % 7.5 %; Neutrophils # 3.2 K/mcL (1.6-8.9); Platelet Count 128 K/mcL (140-400); Red Blood Count 3.15 M/mcL (3.82-4.97); Red Cell Distribution Width 12.7 % (11.5-14.5)
[2018-11-23 05:33] LABS: Alanine Aminotransferase 74 Units/L (7-52); Albumin 3.2 g/dL (3.5-5.7); Albumin/Globulin Ratio 1.8 (1.1-2.2); Alkaline Phosphatase 65 Units/L (34-104); Aspartate Amino Transferase 58 Units/L (13-39); BUN/Creatinine Ratio 13 (6-26); Bilirubin,Total 0.4 mg/dL (0.3-1.0); Blood Urea Nitrogen 7 mg/dL (8-23); Calcium 7.8 mg/dL (8.6-10.3); Carbon Dioxide 25 mEq/L (23-29); Chloride 107 mEq/L (98-107); Globulin 1.8 g/dL (2.4-3.5); Glucose 97 mg/dL (70-105); Osmolality,Calculated 282 (280-300); Potassium 3.8 mEq/L (3.5-5.1); Sodium 137 mEq/L (136-145); eGFR For Non-African Americans > 60 (> 60)
[2018-11-23] MEDS: Isosorbide MONOnitrate (24 HR) 60 MG TAB.ER.24H PO SCH (07:46)
[2018-11-23] MEDS: Cholecalciferol (D-3) 1,000 UNIT TABLET PO SCH (07:46)
[2018-11-23] MEDS: 0.9 % Sodium Chloride 1,000 ML IVC SCH (07:49)
[2018-11-23] MEDS: *HR* HYDROcodone/Acet 5/325 mg TABLET PO PRN (07:53)
[2018-11-23 08:48] LABS: Bilirubin,Urine Negative (Negative); Blood,Urine Trace (Negative); Clarity,Urine Cloudy (Clear); Color,Urine Yellow (Yellow); Glucose,Urine (UA) Normal (Normal); Ketones,Urine Negative (Negative); Leukocyte Esterase,Urine Moderate (Negative); Nitrite,Urine Positive (Negative); Protein,Urine Negative (Neg-Trace); Specific Gravity,Urine 1.012 (1.010-1.025); Urobilinogen,Urine Normal (Normal)
[2018-11-23 08:51] LABS: Bacteria,Urine Many per hpf (None-Few); Hyaline Casts,Urine None Seen per lpf (None-Few); Squamous Epithelial Cell,Urine Many per lpf (None-Few); WBC,Urine 50-100 per hpf (0-3)
--- NOTE | 2018-11-23 10:25 | Discharge Summary ---
- NOTES TO OUTPATIENT PROVIDER Notes to Outpatient Provider: Plavix was stopped. Admitted with melena. EGD showed two small gastric ulcers in the cardia. Small clot like material overlying the ulcers with no active bleeding. Those were removed. With cardiac stents being many years ago, I have elected to stop plavix given risks and be nefits. Also discharged on cipro for 7 days for urinary symptosm and UA that was positive. Unfortunately urine cultures were not sent. A CBC in 5 days is ordered Orders not resulted at time of discharge: Pending orders 11/21/18 06:00 ECG 12 lead ECG [ECG] AM 0600 11/22/18 11:46 Surgical Pathology [PTH] Routine 11/23/18 08:35 Culture,Urine [RM] Stat 11/24/18 04:00 Complete Blood Count [HEME] AM 0400 Date of Encounter: 11/23/18 Time of Encounter: 10:23 - Discharge Diagnosis (1) Melena Priority: Primary Status: Acute (2) GI bleed Priority: Primary Status: Acute Qualifiers: GI bleed type/associated pathology: gastritis Gastritis type: acute gastritis Qualified Code(s): K29.01 - Acute gastritis with bleeding (3) Dysuria Priority: Primary Status: Acute (4) Hypokalemia Priority: Primary Status: Acute (5) UTI (urinary tract infection) Priority: Primary Status: Acute Qualifiers: Urinary tract infection type: acute cystitis Hematuria presence: without hematuria Qualified Code(s): N30.00 - Acute cystitis without hematuria (6) Hypothyroidism Priority: Secondary Status: Chronic Qualifiers: Hypothyroidism type: acquired Qualified Code(s): E03.9 - Hypothyroidism, unspecified (7) Hypertension Priority: Secondary Status: Chronic Qualifiers: Hypertension type: essential hypertension Qualified Code(s): I10 - Essential (primary) hypertension (8) CAD (coronary artery disease) Priority: Secondary Status: Chronic Qualifiers: Coronary Disease-Associated Artery/Lesion type: telida artery [place] vs. transplanted heart: telida heart Associated angina: without angina Qualified Code(s): I25.10 - Atherosclerotic heart disease of telida coronary artery without angina pectoris Hospital course: Ms. Acuna is a 88 year old female who presented with one day history of bloody stools. She was feeling well until she had several bowel movements of initially dark, tarry stools followed by gross blood in the stool. This prompted patient and family to come to ER for evaluation. Work-up in ER revealed patient to have no sign of anemia, but she was having some abdominal pain and frequent bouts of GI bleed as reported by family. She underwent CT scan of the abdomen, which revealed negative findings other than evidence of gastritis. She did have evidence of diverticulosis, however. She was therefore admitted to the hospitalist service with acute care surgical consultation for possible need for endoscopy. Hgb was 11.9 initially and while here did drop to 9.7. Was put on Protonix drip. Remained hemodynamically stable. Went for an EGD and colonoscopy and showed two small gastric ulcers in the cardia. Small clot like material overlying the ulcers with no active bleeding. Those were removed. large size diverticula throughout the entire colon. Moderate size internal hemorrhoids. She was discharged the following day as she was cleared by acute care surgery. She will have repeat CBC in 5 days. I have stopped her plavix. She has s history of CAD with stents with last being over 10 years ago. Given her age and risks and benefits and discussion with family, we have elected to stop it for now. Was discharged on 11/23/18 Upon my assessm - Time Spent with Patient Total time spent providing and/or coordinating discharge services: Time spent: Greater than 30 minutes - Discharge Medications Prescriptions: New Sucralfate [Carafate] 1 gm PO QIDAC 30 Days #120 tablet Ciprofloxacin HCl [Cipro] 500 mg PO BID #14 tablet Continue Metoprolol [Lopressor] 25 mg PO BID hydroCHLOROthiazide [Hydrochlorothiazide] 25 mg PO DAILY Enalapril Maleate [Vasotec] 20 mg PO BID Ranitidine HCl [Acid Deliverer Outside] 150 mg PO BID Citalopram Hydrobromide [Celexa] 20 mg PO QPM Isosorbide MONOnitrate (24 HR) [Imdur] 60 mg PO DAILY Cholecalciferol (D-3) [Vitamin D] 1,000 unit PO DAILY Cyanocobalamin (Vitamin B-12) [Vitamin B-12] 2,500 mcg SL DAILY Pantoprazole Sodium [Protonix] 40 mg PO DAILY Discontinued Clopidogrel [Plavix] 75 mg PO DAILY Home Medications: Citalopram Hydrobromide [Celexa] 20 mg PO QPM 02/10/18 [History] Enalapril Maleate [Vasotec] 20 mg PO BID 02/10/18 [History] Isosorbide MONOnitrate (24 HR) [Imdur] 60 mg PO DAILY 02/10/18 [History] Metoprolol [Lopressor] 25 mg PO BID 02/10/18 [History] Ranitidine HCl [Acid Deliverer Outside] 150 mg PO BID 02/10/18 [History] hydroCHLOROthiazide [Hydrochlorothiazide] 25 mg PO DAILY 02/10/18 [History] Cholecalciferol (D-3) [Vitamin D] 1,000 unit PO DAILY 11/20/18 [History] Cyanocobalamin (Vitamin B-12) [Vitamin B-12] 2,500 mcg SL DAILY 11/20/18 [History] Pantoprazole Sodium [Protonix] 40 mg PO DAILY 11/20/18 [History] Ciprofloxacin HCl [Cipro] 500 mg PO BID #14 tablet 11/23/18 [Rx] Sucralfate [Carafate] 1 gm PO QIDAC 30 Days #120 tablet 11/23/18 [Rx] Allergies/Adverse Reactions: Allergy/AdvReac Type Severity Reaction Status Date / Time No Known Allergies Allergy Verified 09/06/17 14:53 Date of admission: 11/20/18 23:13 Primary care physician: Chriss Langford Consults: 11/20/18 20:23 Consult to Surgery [CONS] Stat Consulting Provider: Solis Ryan Reason for Consult: GI bleed Time Notified: 20:24 Call Completed: Yes 11/22/18 14:44 Consult to Occupational Therapy [CONS] Routine Comment: Evaluate, develop and implement POC Reason for Consult: therapy/placement needs Does patient have active BEDREST order?: No Is patient medically & hemodynamically stable?: Yes Consult to Physical Therapy [CONS] Routine Comment: Evaluate, develop and implement POC Reason for Consult: PT eval Does patient have active BEDREST order?: No Is patient medically & hemodynamically stable?: Yes - Constitutional Vitals: Temp Pulse Resp BP Pulse Ox 99.4 F 72 14 123/63 99 11/23/18 04:45 11/23/18 04:45 11/23/18 04:45 11/23/18 04:45 11/23/18 04:45 General appearance: Present: cooperative, mild distress, A&O X 3, pleasant, answers questions appropriately Exam: GEN: NAD CVS: RRR. S1, S2, No m/r/g RESP: CTAB ABD: Soft, NT, ND, +BS EXT: No edema. 2+ DP. No rashes NEURO: Nonfocal - Patient Status Disposition: Home, Self-Care Condition: Fair Overall status at discharge: patient is progressing back to baseline - Ambulatory Orders Ambulatory Orders: Complete Blood Count w/o Diff [HEME] Time Frame: 11/27/18, Facility: [facility], Location: Lab - Discharge Instructions Follow Up With: Chriss Langford [Primary Care Provider] - - Diet and Activity Activity: increase activity as tolerated Diet: low salt diet
== END 2018-11-23 11:58 | disposition home or self-care (01) ==
LOC: 3ANU 16:14 → EMEROOARM 16:14 → SUATTDRO 23:13 → 3ANU 23:48
PROVIDERS: ADMIT Pediatrics; ATTEND Internal Medicine
PROC: ENDOEBX (2018-11-22 10:42)